=== PATIENT | female | born 1945 | race Caucasian/White ===

== ENCOUNTER → 2017-11-29 | Outpatient (CLI) | payer MEDICARE, OTHER ==
[2017-11-29 11:13] LABS: Basophils % (A) 1 %; Eosinophils # (A) 0.2 k/uL (0-0.7); Eosinophils % (A) 3 %; HCT 43.5 % (34.0-46.0); HGB 13.4 gm/dL (11.4-16.0); Lymphocytes # (A) 1.6 k/uL (1.0-4.8); Lymphocytes % (A) 32 %; MCH 30.6 pg (25.0-35.0); MCHC 30.9 g/dL (31.0-37.0); Mean Platelet Volume 7.4; Monocytes # (A) 0.2 k/uL (0-1.0); Monocytes % (A) 5 %; Neutrophils # (A) 2.9 k/uL (1.3-7.7); Neutrophils % (A) 58 %; Platelet Count 286 k/uL (150-450); RBC 4.39 m/uL (3.80-5.40); RDW 13.6 % (11.5-15.5); WBC 4.9 k/uL (3.8-10.6)
[2017-11-29 11:26] LABS: Albumin 4.1 g/dL (3.5-5.0); Calcium 9.5 mg/dL (8.4-10.2); Magnesium 2.1 mg/dL (1.6-2.3); Potassium 4.7 mmol/L (3.5-5.1); Total Bilirubin 0.5 mg/dL (0.2-1.3); Total Protein 7.1 g/dL (6.3-8.2)
[2017-11-29 11:39] LABS: T4, Free (Free Thyroxine) 0.94 ng/dL (0.78-2.19)
== END | disposition home or self-care (01) ==
LOC: LABWHC1 10:07
PROVIDERS: ATTEND Nurse Practitioner
DX: E78.00 Pure hypercholesterolemia, unspecified (principal); E03.9 Hypothyroidism, unspecified; E55.9 Vitamin D deficiency, unspecified; I10 Essential (primary) hypertension
CPT/HCPCS: 36415; 80053; 80061; 82306; 83735; 84100; 84439; 84443; 85025

== ENCOUNTER → 2018-02-15 | Outpatient (CLI) | payer MEDICARE, OTHER ==
[2018-02-15 16:25] LABS: T4, Free (Free Thyroxine) 1.7 ng/dL (0.80-1.80)
== END ==
LOC: LABWHC1 10:12
PROVIDERS: ATTEND Internal Medicine Pulmonary Disease
DX: E03.9 Hypothyroidism, unspecified (principal)
CPT/HCPCS: 36415; 84439; 84443

== ENCOUNTER → 2018-06-07 | Outpatient (CLI) | payer MEDICARE, OTHER ==
[2018-06-07 18:36] LABS: T4, Free (Free Thyroxine) 1.9 ng/dL (0.80-1.80)
== END ==
LOC: LABWHC1 14:06
PROVIDERS: ATTEND Nurse Practitioner
DX: E03.9 Hypothyroidism, unspecified (principal)
CPT/HCPCS: 36415; 84439; 84443

== ENCOUNTER → 2018-09-24 | Outpatient (CLI) | payer MEDICARE, OTHER ==
--- NOTE | 2018-09-24 15:13 | CT ---
EXAMINATION TYPE: CT abdomen pelvis w con DATE OF EXAM: 09/24/2018 COMPARISON: None HISTORY: abdominal pain CT DLP: 550.2 mGycm Automated exposure control for dose reduction was used. TECHNIQUE: Helical acquisition of images from the lung bases through the pelvis have been completed. CONTRAST: Performed with Oral Contrast and with IV Contrast, patient injected with 100 mL of Isovue 300. FINDINGS: There are intracardiac leads present. LUNG BASES: Some minimal strand-like densities at the lung bases are noted likely reflecting scarring . Small subpleural bulla at the left lung base posteriorly AORTA: No significant abnormality is appreciated. LIVER/GB: There are low dense foci within the right lobe of the liver, the larger measures approximat adalberto 2 cm, findings likely represent cysts. There is mild prominence of intrahepatic biliary ducts lik adalberto due to postcholecystectomy change.. PANCREAS: The head of the pancreas shows some high attenuation which may be related to local duodenal diverticulum, there is suggestion of an air-fluid level at the level of the distal pancreatic duct. SPLEEN: No significant abnormality is seen. ADRENALS: No significant abnormality is seen. KIDNEYS: Left kidney shows marked irregularity, probable multiple areas of scarring, loss of cortex. Right kidney is unremarkable. REPRODUCTIVE ORGANS: Uterus is not seen. Suspect there may be a cystic right ovarian lesion in the ri ght hemipelvis measuring 2.3 cm. BOWEL: There is some areas of colonic wall thickening especially towards the splenic flexure, divert icular changes present within the sigmoid colon. FREE AIR: No Free Air visible. ASCITES: None visible. PELVIC ADENOPATHY: None visualized. RETROPERITONEAL ADENOPATHY: No Retroperitoneal Adenopathy visible. URINARY BLADDER: No significant abnormality is seen. OSSEOUS STRUCTURES: Degenerative disc changes in the visualized spine.. IMPRESSION: DIVERTICULOSIS, DIFFICULT TO EXCLUDE MUCOSAL ABNORMALITY, COLITIS. POSTOP CHANGES. RIGHT OVARIAN CYST IC LESION IS INDETERMINATE. PROBABLE DUODENAL DIVERTICULUM DESCRIBED. Additional findings above.
== END | disposition home or self-care (01) ==
LOC: RADCTMAIN 12:31
DX: K57.90 Diverticulosis of intestine, part unspecified, without perforation or abscess without bleeding (principal); K52.9 Noninfective gastroenteritis and colitis, unspecified; K76.89 Other specified diseases of liver; Z98.890 Other specified postprocedural states; R10.9 Unspecified abdominal pain
CPT/HCPCS: 36415; 74177; 82565; 84520

== ENCOUNTER → 2020-07-28 | Outpatient (CLI) | payer MEDICARE, OTHER ==
[2020-07-29 16:06] LABS: T4, Free (Free Thyroxine) 0.7 ng/dL (0.80-1.80)
== END | disposition home or self-care (01) ==
LOC: LABWHC1 14:15
PROVIDERS: ATTEND Nurse Practitioner
DX: E03.9 Hypothyroidism, unspecified (principal)
CPT/HCPCS: 36415; 84439; 84443

== ENCOUNTER 2022-09-04 14:52 | Emergency (ER) | payer MEDICARE, OTHER ==
[2022-09-04 15:37] LABS: Basophils % (A) 0 %; Eosinophils # (A) 0.1 k/uL (0-0.7); Eosinophils % (A) 2 %; HCT 41.9 % (34.0-46.0); HGB 13.6 gm/dL (11.4-16.0); Lymphocytes # (A) 1.7 k/uL (1.0-4.8); Lymphocytes % (A) 28 %; MCH 31.2 pg (25.0-35.0); MCHC 32.6 g/dL (31.0-37.0); MCV 95.9 fL (80.0-100.0); Mean Platelet Volume 8.8; Monocytes # (A) 0.4 k/uL (0-1.0); Monocytes % (A) 6 %; Neutrophils # (A) 3.8 k/uL (1.3-7.7); Neutrophils % (A) 63 %; Platelet Count 224 k/uL (150-450); RBC 4.36 m/uL (3.80-5.40); RDW 12.6 % (11.5-15.5)
[2022-09-04 15:47] LABS: ALT 17 U/L (4-34); AST 29 U/L (14-36); African American GFR (CKD) 77 (>60 ml/min/1.73 sqM); Albumin 4.2 g/dL (3.5-5.0); Alkaline Phosphatase 65 U/L (38-126); Anion Gap 12 mmol/L; Blood Urea Nitrogen 24 mg/dL (7-17); Calcium 9.3 mg/dL (8.4-10.2); Carbon Dioxide 22 mmol/L (22-30); Chloride 101 mmol/L (98-107); Glucose 87 mg/dL (74-99); Magnesium 1.9 mg/dL (1.6-2.3); Non-African American GFR(CKD) 67 (>60 ml/min/1.73 sqM); Potassium 4.1 mmol/L (3.5-5.1); Sodium 135 mmol/L (137-145); Total Bilirubin 0.5 mg/dL (0.2-1.3)
--- NOTE | 2022-09-04 17:54 | ED ---
Dizziness HPI - General Source: patient Mode of arrival: ambulatory Limitations: no limitations <AlfredoCasper nicholas - Last Filed: 09/04/22 17:57> <Drew Foley - Last Filed: 09/05/22 05:51> - General Chief Complaint: Syncope Stated Complaint: Fall/Syncope - History of Present Illness Initial Comments: 77 year old Female presents to the ED with chief complaint of syncope. Patient states she was standing in her yard when all of a sudden felt lightheaded and fell to the ground. Patient states she fell to her left side and now notes left hip pain, left knee pain, left ankle pain. (Casper Grullon) Patient is a 77-year-old female with known history of orthostatic hypotension who presents emergency Department complaining of an episode of orthostatic hypotension. Patient was outside for camper when she was leaned over working on the outside of the camper and picked up her head too fast when she experienced an episode of her typical orthostatic hypotension. She states she did not hit her head. States she may have lost consciousness for one second but when her left knee and ankle hit the ground is when she awoke. Denies any injury to the head. Is not on blood thinners. Currently is feeling well except for left knee pain, left ankle pain, left hip pain. His no other acute complaints at this time. Does not believe she is dehydrated but has noticed that over the last 2 weeks with increased warm whether there is a possibility. Patient originally seen as a quick note. I evaluated patient when she was placed in room 19. At 2145 (Drew Foley) - Related Data Home Medications Medication Instructions Recorded Confirmed ALPRAZolam [Xanax] 0.25 mg PO HS PRN 01/13/15 01/18/15 Cranberry Conc/C/Bacill Coag 1 tab PO DAILY 01/13/15 01/18/15 [Cranberry Tablet] Docusate [Colace] 100 mg PO DAILY 01/13/15 01/18/15 Levothyroxine Sodium [Synthroid] 112 mcg PO HS 01/13/15 01/18/15 Pravastatin Sodium [Pravachol] 40 mg PO HS 01/13/15 01/18/15 polyethylene glycoL 3350 [Miralax] 17 gm PO DAILY 01/13/15 01/18/15 Acetaminophen Tab [Tylenol] 500 mg PO Q6H 01/18/15 01/18/15 Previous Rx's Medication Instructions Recorded Aspirin 325 mg PO BID #60 tab 01/19/15 Docusate [Colace] 100 mg PO DAILY #30 capsule 01/19/15 HYDROcodone/APAP 7.5-325MG [[place] 1 - 2 each PO Q6HR PRN #40 tab 01/19/15 7.5-325] traMADol HCl [Ultram] 50 mg PO Q6H PRN #40 tab 01/19/15 hydrOXYzine pamoate [Vistaril] 25 mg PO Q6HR #40 capsule 01/20/15 Allergies Allergy/AdvReac Type Severity Reaction Status Date / Time nickel Allergy Itching, Verified 09/04/22 14:58 red skin Review of Systems ROS Other: All systems not noted in ROS Statement are negative. <Casper Grullon - Last Filed: 09/04/22 17:57> ROS Other: All systems not noted in ROS Statement are negative. <Drew Foley - Last Filed: 09/05/22 05:51> ROS Statement: Those systems with pertinent positive or pertinent negative responses have been documented in the HPI. Review of Systems: CONST: Denies fever EYES: Denies blurry vision ENT: Denies nasal congestion C/V: Denies Chest pain RESP: Denies shortness of breath GI: Denies abdominal pain : Denies dysuria SKIN: Denies rash. MSK: Endorses joint pain NEURO: Denies headache (Drew Foley) Past Medical History Past Medical History: Hyperlipidemia, Osteoarthritis (OA), Syncope, Thyroid Disorder Additional Past Medical History / Comment(s): 01/18/15 Pt admitted to floor s/p total L knee arthroplasty. Other hx: syncopy, SSS -2nd degree heart block-has pacemaker, intermittent benign familial head tremors, pas hx. pancreatitis, chronic back pain, DDD, hypothyroidism, orthostatic hypotension, diverticulosis, possible celiac disease-pt eats gluten free, last known EF 55-60% in 2013 with mild tricuspid regurg. History of Any Multi-Drug Resistant Organisms: None Reported Past Surgical History: Breast Surgery, Cholecystectomy, Joint Replacement, Pacemaker, Tonsillectomy Additional Past Surgical History / Comment(s): 01/18/15 total L knee arthroplasty. Other SX HX: dual chamber pacer 01/26/13 breast implants, right knee replaced, oophorectomy Past Anesthesia/Blood Transfusion Reactions: Postoperative Nausea & Vomiting (PONV) Additional Past Anesthesia/Blood Transfusion Reaction / Comment(s): Pt has never recieved blood. Type of Cardiac Device: Permanent Pacemaker Device Placement Date:: 01/26/13 Past Psychological History: Anxiety Smoking Status: Never smoker Past Alcohol Use History: Occasional Past Drug Use History: None Reported - Past Family History Mother Sister(s) Family Medical History: Cancer Mother Family Medical History: Cancer Additional Family Medical History / Comment(s): Mother from chemo used to tx breast cancer at age 69yrs. Father Additional Family Medical History / Comment(s): Father was healthy until he of a brain aneurysm at age 38 yrs. <Casper Grullon - Last Filed: 09/04/22 17:57> General Exam Limitations: no limitations General appearance: alert, in no apparent distress Respiratory exam: Present: normal lung sounds bilaterally Cardiovascular Exam: Present: regular rate, normal rhythm Neurological exam: Present: alert, oriented X3 <Casper Grullon - Last Filed: 09/04/22 17:57> <Drew Foley - Last Filed: 09/05/22 05:51> - General Exam Comments Initial Comments: General: Appears in no acute distress. HEAD: Normal with no signs of head trauma. EYES: PERRLA, EOMI, conjunctiva normal, no discharge. Pupils are 2 mm and equal bilaterally. ENT: Hearing grossly intact, normal oropharynx. RESPIRATORY: Clear breath sounds bilaterally. No wheezes, rales, or rhonchi. C/V: Regular rate and rhythm. S1 and S2 auscultated, no edema, peripheral pulses 2+ and intact throughout ABD: Abd is soft, nontender, nondistended EXT: Normal range of motion. No obvious deformity. Tenderness to palpation of the left knee. Mild tenderness over the lateral malleolus of the left ankle. M ild tenderness over the left posterior hip. No obvious deformities. Normal range of motion. Neurovascular intact throughout. SKIN: No rashes or lesions observed on exposed skin. NEURO: Alert and oriented x 4. Cranial nerves II-XII intact. No focal sensory or strength deficits. NIH is 0. GCS of 15. (Drew Foley) Course Vital Signs 09/04/22 09/04/22 09/04/22 14:55 18:39 21:40 Temperature 98 F 98.4 F Pulse Rate 91 94 88 Pulse Rate [ Pulse Oximetery ] Respiratory 20 16 18 Rate Blood Pressure 114/59 122/83 141/86 Blood Pressure [Right Arm Sitting] Blood Pressure [Right Arm Standing] Blood Pressure [Right Arm Supine] O2 Sat by Pulse 99 96 95 Oximetry 09/04/22 09/04/22 22:51 22:53 Temperature Pulse Rate 100 Pulse Rate [ 100 Pulse Oximetery ] Respiratory 18 Rate Blood Pressure 126/81 Blood Pressure 149/89 [Right Arm Sitting] Blood Pressure 152/96 [Right Arm Standing] Blood Pressure 126/81 [Right Arm Supine] O2 Sat by Pulse 97 Oximetry Medical Decision Making - Lab Data Result diagrams: 09/04/22 15:21 09/04/22 15:21 <Casper Grullon - Last Filed: 09/04/22 17:57> - Lab Data Result diagrams: 09/04/22 15:21 09/04/22 15:21 - EKG Data -: EKG Interpreted by Co <Drew Foley - Last Filed: 09/05/22 05:51> - Medical Decision Making Was pt. sent in by a medical professional or institution (, PA, MEDICAL RECORDS MANAGER, urgent care, hospital, or halfway...) When possible be specific @ -No Did you speak to anyone other than the patient for history (EMS, parent, family, police, friend...)? What history was obtained from this source @ -No Did you review nursing and triage notes (agree or disagree)? Why? @ -I reviewed and agree with nursing and triage notes Were old charts reviewed (outside hosp., previous admission, EMS record, old EKG, old radiological studies, urgent care reports/EKG's, halfway records)? Report findings @ -No old charts were reviewed Differential Diagnosis (chest pain, altered mental status, abdominal pain women, abdominal pain men, vaginal bleeding, weakness, fever, dyspnea, syncope, headache, dizziness, GI bleed, back pain, seizure, CVA, palpatations, mental health, musculoskeletal)? @ -Differential Syncope: Valvular disease, hypertrophic cardiomyopathy, pulmonary embolism, tamponade, tachycardia, bradycardia, SC, hypovolemia, hemorrhage, dissection, anemia, intracranial hemorrhage, seizure, hypoglycemia, carbon monoxide poisoning, this is not meant to be an all-inclusive list. EKG interpreted by me (3pts min.). @ -As above X-rays interpreted by me (1pt min.). @ -Chest x-ray reveals no obvious acute cardio, process. No acute injury. Pelvis x-ray reveals no obvious injury. Left knee and left ankle x-rays reveal no obvious injuries. CT interpreted by me (1pt min.). @ -None done U/S interpreted by me (1pt. min.). @ -None done What testing was considered but not performed or refused? (CT, X-rays, U/S, labs)? Why? @ -None What meds were considered but not given or refused? Why? @ -None Did you discuss the management of the patient with other professionals (professionals i.e. , PA, MEDICAL RECORDS MANAGER, lab, RT, psych nurse, pediatric social worker, stave mill hand, teacher, emergency communications officer, field nurse case manager)? Give summary @ -No Was smoking cessation discussed for >3mins.? @ -No Was critical care preformed (if so, how long)? @ -No Were there social determinants of health that impacted care today? How? (Homelessness, low income, unemployed, alcoholism, drug addiction, transp ortation, low edu. Level, literacy, decrease access to med. care, [facility], rehab)? @ -No Was there de-escalation of care discussed even if they declined (Discuss DNR or withdrawal of care, Hospice)? DNR status @ -No What co-morbidities impacted this encounter? (DM, HTN, Smoking, COPD, CAD, Cancer, CVA, ARF, Chemo, Hep., AIDS, mental health diagnosis, sleep apnea, morbid obesity)? @ -Orthostatic hypotension Was patient admitted / discharged? Hospital course, mention meds given and rout e, prescriptions, significant lab abnormalities, going to OR and other pertinent info. @ -Based on the patient's presentation and physical exam, do believe she suffered an episode of orthostatic hypotension. EKG was within normal limits. Imaging which was already obtained show no obvious injuries. Patient's labs are also within acceptable limits. I did discuss with her and would like to provide her with a liter of fluids, and IV Toradol for analgesia, as well as evaluate for orthostatic vital signs. She was in agreement this plan. She is overall well-appearing. Normal neuro exam. No head trauma. Vital signs within acceptable limits. Patient has already been here multiple hours and she was in agreement this plan. Patient's imaging is unremarkable. No acute injuries or fractures. Following Toradol, fluids, orthostatic vital signs within acceptable limits. I discussed with the patient and she would like to go home. She'll be discharged home at this time. She was in agreement with this plan. = I instructed the patient to follow up with their PCP in the next 1-3 days. . I explained that the patient should return to the emergency department if they experience any worsening symptoms. Strict return precautions were discussed with the patient. The patient expressed understanding of these instructions. I answered all questions that the patient had. The patient was discharged home in good condition with their prescriptions and follow up information. Undiagnosed new problem with uncertain prognosis? @ -No Drug Therapy requiring intensive monitoring for toxicity (Heparin, Nitro, Insulin, Cardizem)? @ -No Were any procedures done? @ -No Diagnosis/symptom? @ -Orthostatic hypotension, fall, left knee contusion, muscle strains Acute, or Chronic, or Acute on Chronic? @ -Acute Uncomplicated (without systemic symptoms) or Complicated (systemic symptoms)? @ -Complicated Side effects of treatment? @ -No Exacerbation, Progression, or Severe Exacerbation? @ -No Poses a threat to life or bodily function? How? (Chest pain, USA, SC, pneumonia, PE, COPD, DKA, ARF, appy, cholecystitis, CVA, Diverticulitis, Homicidal, Suicidal, threat to staff... and all critical care pts) @ -No (Drew Foley) - Lab Data Lab Results 09/04/22 09/04/22 09/04/22 Range/Units 15:21 15:21 15:21 WBC 6.0 (3.8-10.6) k/uL RBC 4.36 (3.80-5.40) m/uL Hgb 13.6 (11.4-16.0) gm/dL Hct 41.9 (34.0-46.0) % MCV 95.9 (80.0-100.0) fL MCH 31.2 (25.0-35.0) pg MCHC 32.6 (31.0-37.0) g/dL RDW 12.6 (11.5-15.5) % Plt Count 224 (150-450) k/uL MPV 8.8 Neutrophils % 63 % Lymphocytes % 28 % Monocytes % 6 % Eosinophils % 2 % Basophils % 0 % Neutrophils # 3.8 (1.3-7.7) k/uL Lymphocytes # 1.7 (1.0-4.8) k/uL Monocytes # 0.4 (0-1.0) k/uL Eosinophils # 0.1 (0-0.7) k/uL Basophils # 0.0 (0-0.2) k/uL Sodium 135 L (137-145) mmol/L Potassium 4.1 (3.5-5.1) mmol/L Chloride 101 (98-107) mmol/L Carbon Dioxide 22 (22-30) mmol/L Anion Gap 12 mmol/L BUN 24 H (7-17) mg/dL Creatinine 0.84 (0.52-1.04) mg/dL Est GFR (CKD-EPI)AfAm 77 (>60 ml/min/1.73 sqM) Est GFR (CKD-EPI)NonAf 67 (>60 ml/min/1.73 sqM) Glucose 87 (74-99) mg/dL Calcium 9.3 (8.4-10.2) mg/dL Magnesium 1.9 (1.6-2.3) mg/dL Total Bilirubin 0.5 (0.2-1.3) mg/dL AST 29 (14-36) U/L ALT 17 (4-34) U/L Alkaline Phosphatase 65 (38-126) U/L Troponin I <0.012 (0.000-0.034) ng/mL Total Protein 7.0 (6.3-8.2) g/dL Albumin 4.2 (3.5-5.0) g/dL - EKG Data EKG Comments: 12-lead Electrocardiogram Interpretation Note EKG was reviewed and interpreted by myself. 12-lead ECG performed at 1503 is interpreted by me as revealing normal sinus rhythm at a rate of 85 beats per minute. [place] is normal. AR interval is 176 ms, QRS duration 70 ms, QTc is 392 ms.. There were no ST or T wave abnormalities to suggest myocardial ischemia or injury. R wave progression across the precordium was satisfactory. By my interpretation this EKG is non-diagnostic for acute ischemia. (Drew Foley) Disposition <Casper Grullon - Last Filed: 09/04/22 17:57> Is patient prescribed a controlled substance at d/c from ED?: No Time of Disposition: 23:11 <Drew Foley - Last Filed: 09/05/22 05:51> Clinical Impression: Orthostatic hypotension, Fall, Muscle strain, Contusion of knee, left Disposition: HOME SELF-CARE Condition: Good Referrals: None,Stated [REFERRING] - 1-2 days
[2022-09-04 18:39] VITALS: TEMP 98.4
[2022-09-04 21:41] VITALS: RESP 18
--- NOTE | 2022-09-04 21:51 | XR ---
EXAMINATION TYPE: XR chest 2V DATE OF EXAM: 09/04/2022 8:39 PM COMPARISON: Chest x-ray 01/04/2015 TECHNIQUE: XR chest 2V . CLINICAL INDICATION:Female, 77 years old with history of syncope; FINDINGS: Lungs/Pleura: Streaky atelectasis of the lung bases bilaterally. No focal airspace consolidation, pne umothorax or pleural effusion. Pulmonary vascularity: Unremarkable. Heart/mediastinum: Cardiomediastinal silhouette is unremarkable. Two lead cardiac conduction device o verlying the left hemithorax with lead tips projecting over the right ventricle and right atrium. Musculoskeletal: Multiple level degenerative disc disease changes seen throughout the spine. IMPRESSION: Bibasilar atelectasis versus scarring. No focal consolidation.
--- NOTE | 2022-09-04 21:53 | XR ---
EXAMINATION TYPE: XR ankle complete LT DATE OF EXAM: 09/04/2022 8:42 PM INDICATION: Patient age:Female; 77 years old; Reason for study: left ankle pain s/p fall; PHH. COMPARISON: No relevant priors TECHNIQUE: The left ankle is imaged in frontal, lateral and oblique projections. FINDINGS: There is no evidence of acute osseous pathology. The joint spaces are well-preserved without evidenc e of subluxation or dislocation. Kager's fat pad is intact. Soft tissues are within normal limits. No radiopaque foreign bodies are identified. IMPRESSION: 1. No evidence of acute fracture or significant soft tissue swelling.
--- NOTE | 2022-09-04 21:54 | XR ---
EXAMINATION TYPE: XR knee complete LT DATE OF EXAM: 09/04/2022 8:39 PM INDICATION: Patient age:Female; 77 years old; Reason for study: left knee pain s/p fall; PHH. COMPARISON: Left knee radiographs 01/18/2015 TECHNIQUE: The Left knee(s) was examined in 3 projections. Frontal, lateral and oblique. FINDINGS: Postsurgical changes from total left knee arthroplasty. Hardware appears intact. No sizable joint effusion. No evidence for osseous fracture or dislocation. Small loose osseous body is noted w ithin the infrapatellar space. No radiopaque foreign bodies. IMPRESSION: 1. No acute osseous pathology. 2. Left total knee arthroplasty without evidence for acute hardware complication.
[2022-09-04] MEDS ORDERED: KETOROLAC 15 MG/ML 1 ML VIAL IVP STA (21:55)
[2022-09-04] MEDS ORDERED: SODIUM CHLORIDE 0.9% 1,000 ML IV STA (21:55)
--- NOTE | 2022-09-04 21:56 | XR ---
EXAMINATION TYPE: XR pelvis AP view DATE OF EXAM: 09/04/2022 8:39 PM INDICATION: Patient age:Female; 77 years old; Reason for study: L hip pain; PHH. COMPARISON: None. TECHNIQUE: Single frontal view of the pelvis in AP projection. FINDINGS: No evidence of any acute osseous pathology, joint dislocation, or soft tissue swelling. Mul tiple phleboliths are noted. Degenerative changes of the lower lumbar spine. IMPRESSION: No acute osseous pathology.
[2022-09-04 22:53] VITALS: BP 126/81; PULSE 100
== END 2022-09-04 23:38 | disposition home or self-care (01) ==
LOC: EC 14:52
DX: S83.92XA Sprain of unspecified site of left knee, initial encounter (principal); I95.1 Orthostatic hypotension; E78.5 Hyperlipidemia, unspecified; E03.9 Hypothyroidism, unspecified; M19.90 Unspecified osteoarthritis, unspecified site; F41.9 Anxiety disorder, unspecified; Z88.8 Allergy status to other drugs, medicaments and biological substances; Z79.890 Hormone replacement therapy; Z79.899 Other long term (current) drug therapy; W18.30XA Fall on same level, unspecified, initial encounter
CPT/HCPCS: 36415; 80053; 83735; 84484; 85025; 72170; 73562; 73610; 71046; 99284; 96374; 96361; J1885; 93005

== ENCOUNTER → 2023-01-25 | Outpatient (CLI) | payer MEDICARE, OTHER ==
--- NOTE | 2023-01-26 13:51 | MM ---
Reason for Exam: Screening (asymptomatic). Last mammogram was performed 1 year(s) and 10 month(s) ago. Patient History: Menarche at age 12. First Full-Term at age 17. Postmenopausal. Patient used Estrogen and Progesterone for 15 years. 2009, Bilateral Implants. Mother had breast cancer. Sister had breast cancer. Risk Values: Alaina 5 year model risk: 8.1%. NCI Lifetime model risk: 14.1%. Prior Study Comparison: 03/09/2021 Bilateral Screening Mammogram, [facility]. Tissue Density: There are scattered fibroglandular densities. Findings: Analyzed By CAD. Bilateral breast implants. There is no suspicious group of microcalcifications or new suspicious mass. Overall Assessment: Negative, BI-RAD 1 Management: Screening Mammogram of both breasts in [address] [facility] will attempt to contact patient to return for supplemental views and ultrasound if indicated. Patient should continue monthly self-breast exams. A clinical breast exam by your physician is recommended on an annual basis. This exam should not preclude additional follow-up of suspicious palpable abnormalities. Note on Alaina scores and lifetime risk: 1. A Alaina score greater than 3% is considered moderate risk. If this is the case, consider specialist referral to assess eligibility for a risk reducing agent. 2. If overall lifetime risk for the development of breast cancer is 20% or higher, the patient may qualify for future screening with alternating mammogram and breast MRI. Electronically signed and approved by: Tony Hernandez DO
== END | disposition home or self-care (01) ==
LOC: RADMAMWWP 13:34
PROVIDERS: ATTEND Internal Medicine Pulmonary Disease
DX: Z12.31 Encounter for screening mammogram for malignant neoplasm of breast (principal); Z78.0 Asymptomatic menopausal state; Z80.3 Family history of malignant neoplasm of breast; Z98.82 Breast implant status
CPT/HCPCS: 77063; 77067

== ENCOUNTER 2023-07-28 10:06 | Observation (INO) | payer MEDICARE, OTHER ==
--- NOTE | 2023-07-28 10:35 | ED ---
General Adult HPI - General Stated complaint: chest pain Time Seen by Provider: 07/28/23 10:25 Source: patient, RN notes reviewed, old records reviewed - History of Present Illness Initial comments: This is a 78-year-old female who presents to the emergency department the past medical history significant for smoking which she quit 20 years ago and high cholesterol. Patient states yesterday after working outside she started having severe pain across her back and radiated around to the front and last about 2 minutes and after that she felt extremely fatigued and tired. Patient states she woke up this morning and was having chest pain on the left side of her chest radiating to her left armpit and that made her very concerned so she decided to come to the emergency department. Patient denies any diaphoretic episode. Murali albarado denies any radiation to the back today. Patient denied any shortness of breath or difficulty breathing. Patient denies any abdominal pain patient has nausea or vomiting. - Related Data Home Medications Medication Instructions Recorded Confirmed Pravastatin Sodium [Pravachol] 40 mg PO HS 01/13/15 07/28/23 Levothyroxine Sodium [Synthroid] 125 mcg PO HS 09/18/22 07/28/23 Metoprolol Tartrate [Lopressor] 25 mg PO HS 09/18/22 07/28/23 Montelukast [Singulair] 10 mg PO HS 09/18/22 07/28/23 ALPRAZolam [Xanax] 0.25 mg PO TID PRN 07/28/23 07/28/23 Aspirin [[place] Aspirin EC] 81 mg PO HS 07/28/23 07/28/23 Calcium Carbonate/Vitamin D3 1 cap PO HS 07/28/23 07/28/23 [Calcium 600 mg-D3 10 Mcg (400 Iu)] Cranberry Fruit Extract [Cranberry] 500 mg PO HS 07/28/23 07/28/23 Melatonin 10 mg PO HS PRN 07/28/23 07/28/23 Turmeric Root Extract [Turmeric] 500 mg PO HS 07/28/23 07/28/23 Allergies Allergy/AdvReac Type Severity Reaction Status Date / Time gluten Allergy Unknown Verified 07/28/23 11:37 nickel Allergy Itching, Verified 07/28/23 11:37 red skin Review of Systems ROS Statement: Those systems with pertinent positive or pertinent negative responses have been documented in the HPI. ROS Other: All systems not noted in ROS Statement are negative. Past Medical History Past Medical History: Asthma, GERD/Reflux, Hyperlipidemia, Osteoarthritis (OA), Syncope, Thyroid Disorder Additional Past Medical History / Comment(s): Other hx: syncopy, SSS -2nd degree heart block-has pacemaker, intermittent benign familial head tremors, pas hx. pancreatitis, chronic back pain, DDD, hypothyroidism, orthostatic hypotension, diverticulosis, possible celiac disease-pt eats gluten free, last known EF 55- 60% in 2012 with mild tricuspid regurg., passed out recently & was seen in , takes semaglutide for weight loss, not diabetic, see Dr. Lehman H & P History of Any Multi-Drug Resistant Organisms: None Reported Past Surgical History: Breast Surgery, Cholecystectomy, Joint Replacement, Pacemaker, Tonsillectomy, Tubal Ligation Additional Past Surgical History / Comment(s): leandro knee replacements, Other SX HX: dual chamber pacer 01/26/13, breast implants, oophorectomy Past Anesthesia/Blood Transfusion Reactions: Postoperative Nausea & Vomiting (PONV) Additional Past Anesthesia/Blood Transfusion Reaction / Comment(s): Pt has never recieved blood. Type of Cardiac Device: Permanent Pacemaker Device Placement Date:: 01/26/13 Smoking Status: Former smoker - Past Family History Mother Sister(s) Family Medical History: Cancer Mother Family Medical History: Cancer Additional Family Medical History / Comment(s): Mother from chemo used to tx breast cancer at age 69yrs. Father Additional Family Medical History / Comment(s): Father was healthy until he of a brain aneurysm at age 38 yrs. General Exam - General Exam Comments Initial Comments: GENERAL: Patient is well-developed and well-nourished. Patient is nontoxic and well- hydrated and is in mild distress. ENT: Neck is soft and supple. No significant lymphadenopathy is noted. Oropharynx is clear. Moist mucous membranes. Neck has full range of motion without eliciting any pain. EYES: The sclera were anicteric and conjunctiva were pink and moist. Extraocular movements were intact and pupils were equal round and reactive to light. Eyelids were unremarkable. PULMONARY: Unlabored respirations. Good breath sounds bilaterally. No audible rales rhonchi or wheezing was noted. CARDIOVASCULAR: There is a regular rate and rhythm without any murmurs gallops or rubs. ABDOMEN: Soft and nontender with normal bowel sounds. SKIN: Skin is clear with no lesions or rashes and otherwise unremarkable. NEUROLOGIC: Patient is alert and oriented x3. Cranial nerves II through XII are grossly intact. Motor and sensory are also intact. Normal speech, volume and content. Symmetrical smile. MUSCULOSKELETAL: Normal extremities with adequate strength and full range of motion. LYMPHATICS: No significant lymphadenopathy is noted PSYCHIATRIC: Patient is mildly anxious Course Vital Signs 07/28/23 10:27 Temperature 97.0 F L Pulse Rate 88 Respiratory 16 Rate Blood Pressure 141/87 O2 Sat by Pulse 97 Oximetry Medical Decision Making - Medical Decision Making EKG is interpreted by myself. EKG shows a sinus rhythm at 78 bpm parable 170 QRS 99 QT interval 356 QTc is 389. Patient's EKG shows no ST segment elevation or depression. Was pt. sent in by a medical professional or institution (, PA, MASTER OCEAN, urgent care, hospital, or [place] [facility] facility...) When possible be specific @ -No Did you speak to anyone other than the patient for history (EMS, parent, family, police, friend...)? What history was obtained from this source @ -No Did you review nursing and triage notes (agree or disagree)? Why? @ -I reviewed and agree with nursing and triage notes Were old charts reviewed (outside hosp., previous admission, EMS record, old EKG, old radiological studies, urgent care reports/EKG's, [place] [facility] facility records)? Report findings @ -No old charts were reviewed Differential Diagnosis (chest pain, altered mental status, abdominal pain women, abdominal pain men, vaginal bleeding, weakness, fever, dyspnea, syncope, headache, dizziness, GI bleed, back pain, seizure, CVA, palpatations, mental health, musculoskeletal)? @ -Differential Chest Pain: Stable Angina, Unstable Angina, STEMI, NSTEMI Aortic Dissection, Pneumothorax, Musculoskeletal, Esophageal Spasm GERD, Cholecystitis, Pancreatitis, Zoster, this is not meant to be an all-inclusive list. EKG interpreted by me (3pts min.). @ -As above X-rays interpreted by me (1pt min.). @ -Chest x-ray shows no acute abnormality CT interpreted by me (1pt min.). @ -CT of the chest showed no PE no aortic dissection U/S interpreted by me (1pt. min.). @ -None done What testing was considered but not performed or refused? (CT, X-rays, U/S, labs)? Why? @ -None What meds were considered but not given or refused? Why? @ -None Did you discuss the management of the patient with other professionals (professionals i.e. , PA, MASTER OCEAN, lab, RT, psych nurse, vp digital marketing social media and crm, philosophy instructor, teacher, house officer, window caser)? Give summary @ -I spoke with Dr. Louis and he agreed to admit the patient admit the patient repeating orders Was smoking cessation discussed for >3mins.? @ -No Was critical care preformed (if so, how long)? @ -No Were there social determinants of health that impacted care today? How? (Homelessness, low income, unemployed, alcoholism, drug addiction, transportation, low edu. Level, literacy, decrease access to med. care, half-way, rehab)? @ -No Was there de-escalation of care discussed even if they declined (Discuss DNR or withdrawal of care, Hospice)? DNR status @ -No What co-morbidities impacted this encounter? (DM, HTN, Smoking, COPD, CAD, Cancer, CVA, ARF, Chemo, Hep., AIDS, mental health diagnosis, sleep apnea, morbid obesity)? @ -None Was patient admitted / discharged? Hospital course, mention meds given and route, prescriptions, significant lab abnormalities, going to OR and other pe rtinent info. @ -Patient was given aspirin and Nitropaste in the emergency department. Patient continued to have chest pain throughout the ED stay but it was improved. Patient will be admitted to Dr. Louis and cardiology be consulted Undiagnosed new problem with uncertain prognosis? @ -No Drug Therapy requiring intensive monitoring for toxicity (Heparin, Nitro, Insulin, Cardizem)? @ -No Were any procedures done? @ -No Diagnosis/symptom? @ -Chest pain Acute, or Chronic, or Acute on Chronic? @ -Acute Uncomplicated (without systemic symptoms) or Complicated (systemic symptoms)? @ -Complicated Side effects of treatment? @ -No Exacerbation, Progression, or Severe Exacerbation? @ -No Poses a threat to life or bodily function? How? (Chest pain, [place], [place], pneumonia, PE, COPD, DKA, ARF, appy, cholecystitis, CVA, Diverticulitis, Homicidal, Suicidal, threat to staff... and all critical care pts) @ -Yes this could lead to an [place] and endorgan dysfunction - Lab Data Result diagrams: 07/28/23 10:55 07/28/23 10:55 Lab Results 07/28/23 07/28/23 07/28/23 Range/Units 10:55 10:55 10:55 WBC 5.6 (3.8-10.6) k/uL RBC 4.34 (3.80-5.40) m/uL Hgb 13.2 (11.4-16.0) gm/dL Hct 41.4 (34.0-46.0) % MCV 95.3 (80.0-100.0) fL MCH 30.5 (25.0-35.0) pg MCHC 32.0 (31.0-37.0) g/dL RDW 12.7 (11.5-15.5) % Plt Count 224 (150-450) k/uL MPV 7.9 Neutrophils % 65 % Lymphocytes % 24 % Monocytes % 6 % Eosinophils % 3 % Basophils % 1 % Neutrophils # 3.6 (1.3-7.7) k/uL Lymphocytes # 1.3 (1.0-4.8) k/uL Monocytes # 0.3 (0-1.0) k/uL Eosinophils # 0.2 (0-0.7) k/uL Basophils # 0.0 (0-0.2) k/uL PT 10.9 (10.0-12.5) sec INR 1.0 (<1.2) APTT 26.9 (22.0-30.0) sec D-Dimer 1.11 H (<0.60) mg/L FEU Sodium 137 (137-145) mmol/L Potassium 4.2 (3.5-5.1) mmol/L Chloride 108 H (98-107) mmol/L Carbon Dioxide 26 (22-30) mmol/L Anion Gap 3 mmol/L BUN 27 H (7-17) mg/dL Creatinine 0.89 (0.52-1.04) mg/dL Est GFR (CKD-EPI)AfAm 71 (>60 ml/min/1.73 sqM) Est GFR (CKD-EPI)NonAf 62 (>60 ml/min/1.73 sqM) Glucose 85 (74-99) mg/dL Calcium 9.0 (8.4-10.2) mg/dL Magnesium 1.9 (1.6-2.3) mg/dL Total Bilirubin 0.8 (0.2-1.3) mg/dL AST 26 (14-36) U/L ALT 14 (4-34) U/L Alkaline Phosphatase 67 (38-126) U/L Troponin I (0.000-0.034) ng/mL Total Protein 6.6 (6.3-8.2) g/dL Albumin 4.0 (3.5-5.0) g/dL 07/28/23 Range/Units 10:55 WBC (3.8-10.6) k/uL RBC (3.80-5.40) m/uL Hgb (11.4-16.0) gm/dL Hct (34.0-46.0) % MCV (80.0-100.0) fL MCH (25.0-35.0) pg MCHC (31.0-37.0) g/dL RDW (11.5-15.5) % Plt Count (150-450) k/uL MPV Neutrophils % % Lymphocytes % % Monocytes % % Eosinophils % % Basophils % % Neutrophils # (1.3-7.7) k/uL Lymphocytes # (1.0-4.8) k/uL Monocytes # (0-1.0) k/uL Eosinophils # (0-0.7) k/uL Basophils # (0-0.2) k/uL PT (10.0-12.5) sec INR (<1.2) APTT (22.0-30.0) sec D-Dimer (<0.60) mg/L FEU Sodium (137-145) mmol/L Potassium (3.5-5.1) mmol/L Chloride (98-107) mmol/L Carbon Dioxide (22-30) mmol/L Anion Gap mmol/L BUN (7-17) mg/dL Creatinine (0.52-1.04) mg/dL Est GFR (CKD-EPI)AfAm (>60 ml/min/1.73 sqM) Est GFR (CKD-EPI)NonAf (>60 ml/min/1.73 sqM) Glucose (74-99) mg/dL Calcium (8.4-10.2) mg/dL Magnesium (1.6-2.3) mg/dL Total Bilirubin (0.2-1.3) mg/dL AST (14-36) U/L ALT (4-34) U/L Alkaline Phosphatase (38-126) U/L Troponin I <0.012 (0.000-0.034) ng/mL Total Protein (6.3-8.2) g/dL Albumin (3.5-5.0) g/dL Disposition Clinical Impression: Chest pain Disposition: ADMITTED IP TO THIS HOSP Referrals: Nonstaff,Physician [Primary Care Provider] - 1-2 days Time of Disposition: 13:25
[2023-07-28] MEDS: ASPIRIN 81 MG PO STA (10:57)
[2023-07-28] MEDS: NITROGLYCERIN OINT 1 INCH/GM PACKET TOPICAL STA (10:58)
[2023-07-28] MEDS: LORazepam 2 MG/ML INJ IV STA (10:58)
[2023-07-28 11:11] LABS: Basophils % (A) 1 %; Eosinophils # (A) 0.2 k/uL (0-0.7); Eosinophils % (A) 3 %; HCT 41.4 % (34.0-46.0); HGB 13.2 gm/dL (11.4-16.0); Lymphocytes # (A) 1.3 k/uL (1.0-4.8); Lymphocytes % (A) 24 %; MCH 30.5 pg (25.0-35.0); MCV 95.3 fL (80.0-100.0); Mean Platelet Volume 7.9; Monocytes # (A) 0.3 k/uL (0-1.0); Monocytes % (A) 6 %; Neutrophils # (A) 3.6 k/uL (1.3-7.7); Neutrophils % (A) 65 %; Platelet Count 224 k/uL (150-450); RBC 4.34 m/uL (3.80-5.40); RDW 12.7 % (11.5-15.5); WBC 5.6 k/uL (3.8-10.6)
[2023-07-28 11:21] LABS: ALT 14 U/L (4-34); AST 26 U/L (14-36); African American GFR (CKD) 71 (>60 ml/min/1.73 sqM); Alkaline Phosphatase 67 U/L (38-126); Anion Gap 3 mmol/L; Blood Urea Nitrogen 27 mg/dL (7-17); Carbon Dioxide 26 mmol/L (22-30); Chloride 108 mmol/L (98-107); Glucose 85 mg/dL (74-99); Magnesium 1.9 mg/dL (1.6-2.3); Non-African American GFR(CKD) 62 (>60 ml/min/1.73 sqM); Potassium 4.2 mmol/L (3.5-5.1); Sodium 137 mmol/L (137-145); Total Bilirubin 0.8 mg/dL (0.2-1.3); Total Protein 6.6 g/dL (6.3-8.2)
--- NOTE | 2023-07-28 11:22 | XR ---
EXAMINATION TYPE: XR chest 2V DATE OF EXAM: 07/28/2023 COMPARISON: 09/04/2022 HISTORY: Chest pain TECHNIQUE: Frontal and lateral views of the chest are obtained. FINDINGS: There is a 2-lead cardiac pacemaker unchanged in position. There is mild hyperinflation and flattening the diaphragm and stable mild interstitial density in the right lung base. There is no airspace consolidation. There is no pleural effusion or pneumothorax. The heart and pulmonary vasculature are normal. IMPRESSION: 1. No acute cardiopulmonary disease. 2. Findings suggestive of mild COPD and chronic lung changes.
[2023-07-28 11:26] LABS: Partial Thromboplastin Time 26.9 sec (22.0-30.0); Prothrombin Time 10.9 sec (10.0-12.5)
--- NOTE | 2023-07-28 12:20 | CT ---
EXAMINATION TYPE: CT chest angio for PE DATE OF EXAM: 07/28/2023 COMPARISON: None HISTORY: Chest and back pain, elevated d-dimer CT DLP: 214.3 mGycm Automated exposure control for dose reduction was used. CONTRAST: CT Chest for pulmonary embolism performed with with IV Contrast, patient injected with 100 mL of Isov ue 370. FINDINGS: LUNGS: The lungs are grossly clear, there is no concerning parenchymal mass or nodule identified. T here is no pleural effusion or pneumothorax seen. The tracheobronchial tree is patent. MEDIASTINUM: There is satisfactory enhancement of the pulmonary artery and its branches, there is no CT evidence for pulmonary embolism. There are no greater than 1 cm hilar or mediastinal lymph nodes. No pericardial effusion is seen. Bilateral breast implants IMPRESSION: 1. evidence of pulmonary medicine. 2. No acute cardiopulmonary disease 3. Moderate emphysematous changes and mild bibasilar atelectasis and bronchiectasis. Follow-up recommendations for incidental pulmonary nodules are per [employer] or [employer].
[2023-07-28] MEDS ORDERED: NITROGLYCERIN SL TABS 0.4 MG TAB SUBLINGUAL PRN (13:27)
[2023-07-28] MEDS ORDERED: ALPRAZolam 0.25 MG TAB PO PRN (16:32)
--- NOTE | 2023-07-28 16:41 | P.HPIM ---
History of Present Illness Patient is a 78-year-old female came in with complaints of severe sharp nonexertional chest pain that started yesterday radiating from the back to the front. Patient does not have her gallbladder. Patient denies any other radiation of the chest pain to the neck or to the left shoulder denies any diaphoresis lightheadedness shortness of breath associate with that. Patient chest pain is nonexertional. Patient pain resolved in 3 minutes followed by couple more episodes today morning although not as severe. EKG did not show any acute ST-T wave changes the some changes consistent with right bundle branch block 2 sets of troponins are negative. Patient had mild elevated D-dimer because of his CT angio of the chest was obtained which did not show any pulmonary embolism, aortic dissection or pneumonia. Patient has any family history of coronary artery disease or premature coronary disease REVIEW OF SYSTEMS: CONSTITUTIONAL: No fever, no malaise, no fatigue. HEENT: No recent visual problems or hearing problems. Denied any sore throat. CARDIOVASCULAR: No orthopnea, PND, no palpitations, no syncope. PULMONARY: No shortness of breath, no cough, no hemoptysis. GASTROINTESTINAL: No diarrhea, no nausea, no vomiting, no abdominal pain. NEUROLOGICAL: No headaches, no weakness, no numbness. HEMATOLOGICAL: Denies any bleeding or petechiae. GENITOURINARY: Denies any burning micturition, frequency, or urgency. MUSCULOSKELETAL/RHEUMATOLOGICAL: Denies any joint pain, swelling, or any muscle pain. ENDOCRINE: Denies any polyuria or polydipsia. The rest of the 14-point review of systems is negative. PHYSICAL EXAMINATION: GENERAL: The patient is alert and oriented x3, not in any acute distress. Well developed, well nourished. HEENT: Pupils are round and equally reacting to light. EOMI. No scleral icterus. No conjunctival pallor. Normocephalic, atraumatic. No pharyngeal erythema. No thyromegaly. CARDIOVASCULAR: S1 and S2 present. No murmurs, rubs, or gallops. PULMONARY: Chest is clear to auscultation, no wheezing or crackles. ABDOMEN: Soft, nontender, nondistended, normoactive bowel sounds. No palpable organomegaly. MUSCULOSKELETAL: No joint swelling or deformity. EXTREMITIES: No cyanosis, clubbing, or pedal edema. NEUROLOGICAL: Gross neurological examination did not reveal any focal deficits. SKIN: No rashes. Assessment and plan -Chest pain will rule out acute coronary syndromes patient will be monitored overnight cardiology will evaluate the patient. Patient chest pain although is mostly atypical may need an outpatient stress test. -Rule out pulmonary embolism -Asthma without any acute exacerbation -Hypothyroidism -Hyperlipidemia -Anxiety disorder For above-mentioned chronic medical problems patient will be resumed on appropriate home medications DVT prophylaxis: Early ambulation Past Medical History Past Medical History: Asthma, GERD/Reflux, Hyperlipidemia, Osteoarthritis (OA), Syncope, Thyroid Disorder Additional Past Medical History / Comment(s): Other hx: syncopy, SSS -2nd degree heart block-has pacemaker, intermittent benign familial head tremors, pas hx. pancreatitis, chronic back pain, DDD, hypothyroidism, orthostatic hypotension, diverticulosis, possible celiac disease-pt eats gluten free, last known EF 55- 60% in 2012 with mild tricuspid regurg., passed out recently & was seen in , takes semaglutide for weight loss, not diabetic, see Dr. Lehman H & P History of Any Multi-Drug Resistant Organisms: None Reported Past Surgical History: Breast Surgery, Cholecystectomy, Joint Replacement, Pacemaker, Tonsillectomy, Tubal Ligation Additional Past Surgical History / Comment(s): leandro knee replacements, Other SX HX: dual chamber pacer 01/26/13, breast implants, oophorectomy Past Anesthesia/Blood Transfusion Reactions: Postoperative Nausea & Vomiting (PONV) Additional Past Anesthesia/Blood Transfusion Reaction / Comment(s): Pt has never recieved blood. Type of Cardiac Device: Permanent Pacemaker Device Placement Date:: 01/26/13 Smoking Status: Former smoker - Past Family History Mother Sister(s) Family Medical History: Cancer Mother Family Medical History: Cancer Additional Family Medical History / Comment(s): Mother from chemo used to tx breast cancer at age 69yrs. Father Additional Family Medical History / Comment(s): Father was healthy until he of a brain aneurysm at age 38 yrs. Medications and Allergies Home Medications Medication Instructions Recorded Confirmed Type Pravastatin Sodium [Pravachol] 40 mg PO HS 01/13/15 07/28/23 History Levothyroxine Sodium [Synthroid] 125 mcg PO HS 09/18/22 07/28/23 History Metoprolol Tartrate [Lopressor] 25 mg PO HS 09/18/22 07/28/23 History Montelukast [Singulair] 10 mg PO HS 09/18/22 07/28/23 History ALPRAZolam [Xanax] 0.25 mg PO TID PRN 07/28/23 07/28/23 History Aspirin [[place] Aspirin EC] 81 mg PO HS 07/28/23 07/28/23 History Calcium Carbonate/Vitamin D3 1 cap PO HS 07/28/23 07/28/23 History [Calcium 600 mg-D3 10 Mcg (400 Iu)] Cranberry Fruit Extract [Cranberry] 500 mg PO HS 07/28/23 07/28/23 History Melatonin 10 mg PO HS PRN 07/28/23 07/28/23 History Turmeric Root Extract [Turmeric] 500 mg PO HS 07/28/23 07/28/23 History Allergies Allergy/AdvReac Type Severity Reaction Status Date / Time gluten Allergy Unknown Verified 07/28/23 11:37 nickel Allergy Itching, Verified 07/28/23 11:37 red skin Physical Exam Vitals: Vital Signs Temp Pulse Resp BP Pulse Ox 07/28/23 14:00 77 14 96/64 95 07/28/23 10:27 97.0 F L 88 16 141/87 97 Intake and Output 07/28/23 07/28/23 07/28/23 06:59 14:59 22:59 Other: Weight 52.617 kg Results CBC & Chem 7: 07/28/23 10:55 07/28/23 10:55 Labs: Abnormal Lab Results - Last 24 Hours (Table) 07/28/23 07/28/23 Range/Units 10:55 10:55 D-Dimer 1.11 H (<0.60) mg/L FEU Chloride 108 H (98-107) mmol/L BUN 27 H (7-17) mg/dL
[2023-07-28] MEDS: NITROGLYCERIN OINT 1 INCH/GM PACKET TOPICAL SCH (20:21)
[2023-07-28] MEDS: LEVOTHYROXINE 125 MCG TAB PO SCH (20:23)
[2023-07-28] MEDS: PRAVASTATIN SODIUM 40 MG TAB PO SCH (20:23)
[2023-07-28] MEDS: ASPIRIN 81 MG PO SCH (20:23)
[2023-07-28] MEDS: MELATONIN 5 MG TABLET PO PRN (20:23)
[2023-07-28] MEDS: METOPROLOL TARTRATE 25 MG TAB PO SCH (20:24)
[2023-07-28] MEDS: MONTELUKAST 10 MG TAB PO SCH (20:24)
--- NOTE | 2023-07-29 08:38 | P.CRDCN ---
History of Present Illness Consult date: 07/29/23 Consult reason: chest pain History of present illness: This is Charlie Kapadia NP, I'm dictating on behalf of Dr. Lehman's H&P and A&P The patient was interviewed and examined. HPI: Patient is a pleasant 78-year-old female with a past medical history that includes sick sinus syndrome, pancreatitis, chronic back pain, degenerative disc disease, hypothyroidism, orthostatic hypotension who presents to the hospital with chest pain. Patient reports that she was working outside at home moving ladders when she finished she suddenly experienced pain that radiated from her back around front to her chest. She states that it lasted for approximately 3 minutes, and then afterward she had a headache and was very weak afterwards. After resting some more she states the pain returned, and this concerned her enough to present to the hospital for evaluation. In the emergency department the patient was found to have a normal EKG. Troponins have been negative x 3. This morning the patient reports she is having no pain at this time. She also states that the nitro that they put her on in the ER did not do anything for the pain as well. Patient has a pacemaker secondary to sick sinus syndrome. ROS: [No fever, chills, or rigors] [no cough, phlegm, or expectoration] [no nausea, vomiting, or diarrhea] [no hematuria, dysuria] [no musculoskelatal complaints] [no strokes or seizures] [no skin lesions] EXAMINATION: GENERAL: Well-appearing, well-nourished and in no acute distress. NECK: Supple without JVD or thyromegaly. LUNGS: Breath sounds clear to auscultation bilaterally. Respiration equal and unlabored. No wheezes, rales or rhonchi. HEART: Regular rate and rhythm without murmurs, rubs or gallops. S1 and S2 heard. EXTREMITIES: Normal range of motion, no edema. No clubbing or cyanosis. Peripheral pulses intact and strong. REVIEW OF LABS, ECG & MEDICAL DATA: LABS: White count 5.6, hemoglobin 13.2, platelets 224, D-dimer 1.11, sodium 137, potassium 4.2, BUN 27, creatinine 0.89, troponin less than 0.012 x 3 EKG: Normal sinus mechanism IMAGING: Chest x-ray dated 07/28/2023 demonstrates no acute cardiopulmonary disease, findings suggestive of mild COPD and chronic lung changes. VITALS: Temp 97.3, pulse 76 currently respirations 16, blood pressure 101/67, O2 saturation 95% on room air IMPRESSION: 1. Chest pain, musculoskeletal in origin. 2. History of sick sinus syndrome with second-degree heart block, patient has pacemaker 3. Mild COPD noted on chest x-ray PLAN: Obtain lipid panel. Have patient walk up and down the hallway briskly. If she has no further chest pain symptoms, she may be discharged from a cardiology standpoint. Follow-up with Dr. Hansen next week, recommend stress test in the next couple of weeks as an outpatient. Thank you for the consult and allowing us to participate in the care of this pa tient. Past Medical History Past Medical History: Asthma, GERD/Reflux, Hyperlipidemia, Osteoarthritis (OA), Syncope, Thyroid Disorder Additional Past Medical History / Comment(s): Other hx: syncopy, SSS -2nd degree heart block-has pacemaker, intermittent benign familial head tremors, pas hx. pancreatitis, chronic back pain, DDD, hypothyroidism, orthostatic hypotension, diverticulosis, possible celiac disease-pt eats gluten free, last known EF 55- 60% in 2012 with mild tricuspid regurg., passed out recently & was seen in , takes semaglutide for weight loss, not diabetic, see Dr. Lehman H & P History of Any Multi-Drug Resistant Organisms: None Reported Past Surgical History: Breast Surgery, Cholecystectomy, Joint Replacement, Pacemaker, Tonsillectomy, Tubal Ligation Additional Past Surgical History / Comment(s): leandro knee replacements, Other SX HX: dual chamber pacer 01/26/13, breast implants, oophorectomy Past Anesthesia/Blood Transfusion Reactions: Postoperative Nausea & Vomiting (PONV) Additional Past Anesthesia/Blood Transfusion Reaction / Comment(s): Pt has never recieved blood. Type of Cardiac Device: Permanent Pacemaker Device Placement Date:: 01/26/13 Past Psychological History: Anxiety Additional Psychological History / Comment(s): Pt is independent. She drives. She has a cane which she uses prn. Smoking Status: Former smoker Past Alcohol Use History: Rare Additional Past Alcohol Use History / Comment(s): quit smoking 20 yrs. ago, smoked on & off 40 yrs. Past Drug Use History: None Reported - Past Family History Mother Sister(s) Family Medical History: Cancer Mother Family Medical History: Cancer Additional Family Medical History / Comment(s): Mother from chemo used to tx breast cancer at age 69yrs. Father Additional Family Medical History / Comment(s): Father was healthy until he of a brain aneurysm at age 38 yrs. Medications and Allergies Home Medications Medication Instructions Recorded Confirmed Type Pravastatin Sodium [Pravachol] 40 mg PO HS 01/13/15 07/28/23 History Levothyroxine Sodium [Synthroid] 125 mcg PO HS 09/18/22 07/28/23 History Metoprolol Tartrate [Lopressor] 25 mg PO HS 09/18/22 07/28/23 History Montelukast [Singulair] 10 mg PO HS 09/18/22 07/28/23 History ALPRAZolam [Xanax] 0.25 mg PO TID PRN 07/28/23 07/28/23 History Aspirin [[place] Aspirin EC] 81 mg PO HS 07/28/23 07/28/23 History Calcium Carbonate/Vitamin D3 1 cap PO HS 07/28/23 07/28/23 History [Calcium 600 mg-D3 10 Mcg (400 Iu)] Cranberry Fruit Extract [Cranberry] 500 mg PO HS 07/28/23 07/28/23 History Melatonin 10 mg PO HS PRN 07/28/23 07/28/23 History Turmeric Root Extract [Turmeric] 500 mg PO HS 07/28/23 07/28/23 History Allergies Allergy/AdvReac Type Severity Reaction Status Date / Time gluten Allergy Unknown Verified 07/28/23 11:37 nickel Allergy Itching, Verified 07/28/23 11:37 red skin Physical Exam Vitals: Vital Signs Temp Pulse Pulse Resp BP BP Pulse Ox 07/29/23 02:00 97.3 F L 76 16 101/67 95 07/28/23 21:36 95/61 07/28/23 20:00 97.9 F 84 18 86/48 93 L 07/28/23 17:37 97.4 F L 92 16 97/61 96 07/28/23 17:00 87 22 92/60 95 07/28/23 16:45 87 17 108/83 94 L 07/28/23 16:30 93 18 94/59 95 07/28/23 16:15 91 18 98/62 94 L 07/28/23 16:00 105 H 21 90/65 95 07/28/23 15:45 93 22 96/67 93 L 07/28/23 15:30 90 21 107/79 94 L 07/28/23 15:15 89 8 L 92/66 96 07/28/23 15:00 87 26 H 93/65 94 L 07/28/23 14:45 82 20 83/66 94 L 07/28/23 14:30 81 14 92/64 95 07/28/23 14:15 83 16 96/64 93 L 07/28/23 14:00 80 20 85/60 94 L 07/28/23 13:45 78 17 86/62 95 07/28/23 13:30 81 18 89/63 94 L 07/28/23 13:15 75 13 92/68 94 L 07/28/23 13:00 76 14 96/66 92 L 07/28/23 12:45 85 18 99/66 93 L 07/28/23 12:30 85 13 99/68 91 L 07/28/23 12:15 83 16 106/77 94 L 07/28/23 12:00 108/74 07/28/23 11:45 84 17 106/83 95 07/28/23 11:30 81 12 127/78 96 07/28/23 11:00 82 10 L 116/92 07/28/23 10:45 81 15 126/79 98 07/28/23 10:30 83 8 L 141/87 97 07/28/23 10:29 24 141/87 97 07/28/23 10:27 97.0 F L 88 16 141/87 97 Intake and Output 07/28/23 07/29/23 07/29/23 22:59 06:59 14:59 Other: # Voids 2 2 Weight 52.617 kg Results 07/28/23 10:55 07/28/23 10:55 Cardiac Enzymes 07/28/23 07/28/23 07/28/23 Range/Units 10:55 10:55 14:37 AST 26 (14-36) U/L Troponin I <0.012 <0.012 (0.000-0.034) ng/mL 07/28/23 Range/Units 17:18 AST (14-36) U/L Troponin I <0.012 (0.000-0.034) ng/mL Coagulation 07/28/23 Range/Units 10:55 PT 10.9 (10.0-12.5) sec APTT 26.9 (22.0-30.0) sec CBC 07/28/23 Range/Units 10:55 WBC 5.6 (3.8-10.6) k/uL RBC 4.34 (3.80-5.40) m/uL Hgb 13.2 (11.4-16.0) gm/dL Hct 41.4 (34.0-46.0) % Plt Count 224 (150-450) k/uL Comprehensive Metabolic Panel 07/28/23 Range/Units 10:55 Sodium 137 (137-145) mmol/L Potassium 4.2 (3.5-5.1) mmol/L Chloride 108 H (98-107) mmol/L Carbon Dioxide 26 (22-30) mmol/L BUN 27 H (7-17) mg/dL Creatinine 0.89 (0.52-1.04) mg/dL Glucose 85 (74-99) mg/dL Calcium 9.0 (8.4-10.2) mg/dL AST 26 (14-36) U/L ALT 14 (4-34) U/L Alkaline Phosphatase 67 (38-126) U/L Total Protein 6.6 (6.3-8.2) g/dL Albumin 4.0 (3.5-5.0) g/dL Current Medications Generic Name Dose Route Start Last Admin Trade Name Freq PRN Reason Stop Dose Admin Alprazolam 0.25 mg 07/28/23 16:32 Alprazolam 0.25 Mg Tab PO TID PRN Anxiety Aspirin 81 mg 07/28/23 21:00 07/28/23 20:23 Aspirin 81 Mg PO 81 mg HS PHI Administration Levothyroxine Sodium 125 mcg 07/28/23 21:00 07/28/23 20:23 Levothyroxine 125 Mcg Tab PO 125 mcg HS PHI Administration Melatonin 10 mg 07/28/23 16:32 07/28/23 20:23 Melatonin 5 Mg Tablet PO 10 mg HS PRN Administration Insomnia Metoprolol Tartrate 25 mg 07/28/23 21:00 07/28/23 20:24 Metoprolol Tartrate 25 Mg Tab PO 25 mg HS PHI Administration Montelukast Sodium 10 mg 07/28/23 21:00 07/28/23 20:24 Montelukast 10 Mg Tab PO 10 mg HS PHI Administration Nitroglycerin 0.4 mg 07/28/23 13:27 Nitroglycerin Sl Tabs 0.4 Mg Tab SUBLINGUAL Q5M PRN Chest Pain Nitroglycerin 1 inch 07/28/23 18:00 07/29/23 02:38 Nitroglycerin Oint 1 Inch/Gm Packet TOPICAL Not Given Q6HR PHI Pravastatin Sodium 40 mg 07/28/23 21:00 07/28/23 20:23 Pravastatin Sodium 40 Mg Tab PO 40 mg HS PHI Administration Intake and Output 07/28/23 07/29/23 07/29/23 22:59 06:59 14:59 Other: # Voids 2 2 Weight 52.617 kg 07/28/23 10:55 07/28/23 10:55
[2023-07-29] MEDS ORDERED: ASPIRIN 325 MG TAB PO SCH (09:00)
[2023-07-29 09:21] VITALS: BP 115/75; PULSE 93; RESP 17; TEMP 97.5
[2023-07-29 10:21] LABS: Chol/HDL Ratio 2.59 Ratio; LDL Cholesterol,Calculated 89.3 mg/dL (0.0-131.0); VLDL Calculation 18.66 mg/dL (5.00-40.00)
[2023-07-29] MEDS: IBUPROFEN 400 MG TAB PO STA (11:59)
[2023-07-29 13:02] LABS: Chol/HDL Ratio 2.52 Ratio
[2023-07-29 13:03] LABS: LDL Cholesterol,Calculated 93.9 mg/dL (0.0-131.0)
--- NOTE | 2023-07-31 22:04 | P.DS ---
Providers Date of admission: 07/28/23 13:31 Attending physician: Augie Louis Consults: 07/28/23 13:27 Consult Physician Urgent Consulting Provider: [facility] Consult Reason/Comments: Chest pain Do you want consulting provider notified?: Yes Primary care physician: Physician Nonstaff Hospital Course: Final Diagnosis -Chest pain likely musculoskeletal in nature, ACS ruled out -Elevated DDimer with no pulmonary embolism. -Asthma without any acute exacerbation -Hypothyroidism -Hyperlipidemia -Anxiety disorder -Hx pacemaker due to sick sinus syndrome -Possible COPD Discharge Disposition Patient is stable for discharge home. Has been cleared by cardiology felt the chest pain is musculoskeletal in nature. Cardiology recommending outpatient stress test and follow up with her primary building guard deputy sheriff Dr. SCOTT Hansen in 1 to 2 weeks. Hospital Course Patient is a 78-year-old female came in with complaints of severe sharp nonexertional chest pain that started day before admission radiating from the back to the front. Patient does not have her gallbladder. Patient denies any other radiation of the chest pain to the neck or to the left shoulder denies any diaphoresis lightheadedness shortness of breath associate with that. Patient chest pain is nonexertional. Patient pain resolved in 3 minutes followed by couple more episodes today morning although not as severe. EKG did not show any acute ST-T wave changes the some changes consistent with right bundle branch block 2 sets of troponins are negative. Patient had mild elevated D-dimer because of his CT angio of the chest was obtained which did not show any pulmonary embolism, aortic dissection or pneumonia. Patient had been painting her deck and moving a ladder this may be musculoskeletal in nature. She was admitted with cardiology consultation. Troponin was negative x 3 the chest pain had resolved. Patient has been up ambulating with no further reports of chest pain. She will be discharged home. Please see medication reconciliation for a list of current medications. Thank you for allowing us to participate in the care of this patient. The impression and plan of care has been dictated by Elinor Herrera, Nurse Practitioner as directed. Dr. Heriberto MD I have performed a history and physical examination and medical decision making of this patient, discussed the same with the dictator, and agree with the dictators assessment and plan as written, documented as a scribe. Based on total visit time, I have performed more than 50% of this visit. Patient Condition at Discharge: Good Plan - Discharge Summary Discharge Rx Participant: Yes New Discharge Prescriptions: Continue Pravastatin Sodium [Pravachol] 40 mg PO HS Montelukast [Singulair] 10 mg PO HS Metoprolol Tartrate [Lopressor] 25 mg PO HS Levothyroxine Sodium [Synthroid] 125 mcg PO HS Melatonin 10 mg PO HS PRN PRN Reason: Insomnia Aspirin [Tensas Aspirin EC] 81 mg PO HS ALPRAZolam [Xanax] 0.25 mg PO TID PRN PRN Reason: Anxiety Calcium Carbonate/Vitamin D3 [Calcium 600 mg-D3 10 Mcg (400 Iu)] 1 cap PO HS Cranberry Fruit Extract [Cranberry] 500 mg PO HS Turmeric Root Extract [Turmeric] 500 mg PO HS No Action Pantoprazole [Protonix] 40 mg PO DAILY #14 tab Discharge Medication List Pravastatin Sodium [Pravachol] 40 mg PO HS 01/13/15 [History] Levothyroxine Sodium [Synthroid] 125 mcg PO HS 09/18/22 [History] Metoprolol Tartrate [Lopressor] 25 mg PO HS 09/18/22 [History] Montelukast [Singulair] 10 mg PO HS 09/18/22 [History] ALPRAZolam [Xanax] 0.25 mg PO TID PRN 07/28/23 [History] Aspirin [Tensas Aspirin EC] 81 mg PO HS 07/28/23 [History] Calcium Carbonate/Vitamin D3 [Calcium 600 mg-D3 10 Mcg (400 Iu)] 1 cap PO HS 07/28/23 [History] Cranberry Fruit Extract [Cranberry] 500 mg PO HS 07/28/23 [History] Melatonin 10 mg PO HS PRN 07/28/23 [History] Turmeric Root Extract [Turmeric] 500 mg PO HS 07/28/23 [History] Pantoprazole [Protonix] 40 mg PO DAILY #14 tab 07/30/23 [Rx] Follow up Appointment(s)/Referral(s): Wade Hansen MD [STAFF PHYSICIAN] - 1 Week Nonstaff,Physician [Primary Care Provider] - 1-2 days Horace Hansen MD [STAFF PHYSICIAN] - 1-2 Days Patient Instructions/Handouts: Chest Pain (DC) Activity/Diet/Wound Care/Special Instructions: Follow up with Dr. SCOTT Hansen in the office in 1 to 2 weeks regarding possible stress test. Discharge Disposition: HOME SELF-CARE
== END 2023-07-29 14:38 | disposition home or self-care (01) ==
LOC: EC 10:06 → 6NMEDSUR 13:31
PROVIDERS: ADMIT Internal Medicine; ATTEND Internal Medicine
DX: R07.89 Other chest pain (principal); J45.909 Unspecified asthma, uncomplicated; E03.9 Hypothyroidism, unspecified; E78.5 Hyperlipidemia, unspecified; F41.9 Anxiety disorder, unspecified; Z95.0 Presence of cardiac pacemaker; I49.5 Sick sinus syndrome; Z96.653 Presence of artificial knee joint, bilateral; Z82.49 Family history of ischemic heart disease and other diseases of the circulatory system; Z79.899 Other long term (current) drug therapy; Z79.82 Long term (current) use of aspirin
CPT/HCPCS: 96374; 99285; 36415; 93005; 85379; 80061 ×2; 80053; 83735; 84484; 85025; 85610; 85730; 71046; 71275; G0378 ×2; J2060; Q9967

== ENCOUNTER 2023-07-30 01:00 | Observation (INO) | payer MEDICARE, OTHER ==
[2023-07-30] MEDS: LORazepam 2 MG/ML INJ IV STA (01:45)
[2023-07-30 01:55] LABS: Basophils % (A) 1 %; Eosinophils # (A) 0.2 k/uL (0-0.7); Eosinophils % (A) 3 %; HCT 39.8 % (34.0-46.0); HGB 12.9 gm/dL (11.4-16.0); Lymphocytes # (A) 1.5 k/uL (1.0-4.8); Lymphocytes % (A) 29 %; MCHC 32.3 g/dL (31.0-37.0); MCV 95.7 fL (80.0-100.0); Mean Platelet Volume 8.4; Monocytes # (A) 0.3 k/uL (0-1.0); Monocytes % (A) 5 %; Neutrophils # (A) 3.2 k/uL (1.3-7.7); Neutrophils % (A) 60 %; Platelet Count 224 k/uL (150-450); RBC 4.16 m/uL (3.80-5.40); RDW 12.8 % (11.5-15.5); WBC 5.4 k/uL (3.8-10.6)
--- NOTE | 2023-07-30 01:56 | ED ---
Chest Pain HPI - General Chief Complaint: Chest Pain Stated Complaint: Chest Pain Time Seen by Provider: 07/30/23 01:08 Source: patient, EMS Mode of arrival: EMS Limitations: no limitations - History of Present Illness Initial Comments: 78-year-old female with past medical history significant for sick sinus syndrome with pacemaker presented to the ED with complaints of chest pain. Patient discharged from this facility yesterday due to complaints of chest pain that seemed to radiate from her back. At discharge, patient reports pain was mostly resolved and had a dull ache however tonight while she was sleeping she said that she started to experience substernal chest pain different from chest pain that she was having a few days ago. Does note associated diaphoresis and nausea. Reports pain substernal and did not radiate. Patient reported pain ongoing for about 2 minutes until EMS arrived and she was provided baby aspirin, nitro, fentanyl. Upon arrival here states pain is now a 1 out of 10. Reports that this time symptoms mostly resolved however does note some anxiety. No other complaints at this time. - Related Data Home Medications Medication Instructions Recorded Confirmed Pravastatin Sodium [Pravachol] 40 mg PO HS 01/13/15 07/28/23 Levothyroxine Sodium [Synthroid] 125 mcg PO HS 09/18/22 07/28/23 Metoprolol Tartrate [Lopressor] 25 mg PO HS 09/18/22 07/28/23 Montelukast [Singulair] 10 mg PO HS 09/18/22 07/28/23 ALPRAZolam [Xanax] 0.25 mg PO TID PRN 07/28/23 07/28/23 Aspirin [[place] Aspirin EC] 81 mg PO HS 07/28/23 07/28/23 Calcium Carbonate/Vitamin D3 1 cap PO HS 07/28/23 07/28/23 [Calcium 600 mg-D3 10 Mcg (400 Iu)] Cranberry Fruit Extract [Cranberry] 500 mg PO HS 07/28/23 07/28/23 Melatonin 10 mg PO HS PRN 07/28/23 07/28/23 Turmeric Root Extract [Turmeric] 500 mg PO HS 07/28/23 07/28/23 Allergies Allergy/AdvReac Type Severity Reaction Status Date / Time gluten Allergy Unknown Verified 07/28/23 11:37 nickel Allergy Itching, Verified 07/28/23 11:37 red skin Review of Systems ROS Statement: Those systems with pertinent positive or pertinent negative responses have been documented in the HPI. ROS Other: All systems not noted in ROS Statement are negative. Past Medical History Past Medical History: Asthma, GERD/Reflux, Hyperlipidemia, Osteoarthritis (OA), Syncope, Thyroid Disorder Additional Past Medical History / Comment(s): Other hx: syncopy, SSS -2nd degree heart block-has pacemaker, intermittent benign familial head tremors, pas hx. pancreatitis, chronic back pain, DDD, hypothyroidism, orthostatic hypotension, diverticulosis, possible celiac disease-pt eats gluten free, last known EF 55- 60% in 2013 with mild tricuspid regurg., passed out recently & was seen in , takes semaglutide for weight loss, not diabetic, see Dr. Lehman H & P History of Any Multi-Drug Resistant Organisms: None Reported Past Surgical History: Breast Surgery, Cholecystectomy, Joint Replacement, Pacemaker, Tonsillectomy, Tubal Ligation Additional Past Surgical History / Comment(s): leandro knee replacements, Other SX HX: dual chamber pacer 01/26/13, breast implants, oophorectomy Past Anesthesia/Blood Transfusion Reactions: Postoperative Nausea & Vomiting (PONV) Additional Past Anesthesia/Blood Transfusion Reaction / Comment(s): Pt has never recieved blood. Type of Cardiac Device: Permanent Pacemaker Device Placement Date:: 01/26/13 Past Psychological History: Anxiety Smoking Status: Former smoker Past Alcohol Use History: Rare Past Drug Use History: None Reported - Past Family History Mother Sister(s) Family Medical History: Cancer Mother Family Medical History: Cancer Additional Family Medical History / Comment(s): Mother from chemo used to tx breast cancer at age 69yrs. Father Additional Family Medical History / Comment(s): Father was healthy until he of a brain aneurysm at age 38 yrs. General Exam Limitations: no limitations General appearance: alert, in no apparent distress Eye exam: Present: normal appearance Neck exam: Present: normal inspection Respiratory exam: Present: normal lung sounds bilaterally Cardiovascular Exam: Present: regular rate GI/Abdominal exam: Present: soft Neurological exam: Present: alert, oriented X3 Skin exam: Present: warm, dry Course Vital Signs 07/30/23 07/30/23 07/30/23 01:07 02:53 03:19 Temperature 97.5 F L Pulse Rate 75 78 81 Respiratory 18 16 16 Rate Blood Pressure 100/75 80/60 93/62 O2 Sat by Pulse 97 93 L 92 L Oximetry 07/30/23 03:50 Temperature Pulse Rate 88 Respiratory 16 Rate Blood Pressure 97/67 O2 Sat by Pulse 95 Oximetry Chest Pain MDM - MDM Was pt. sent in by a medical professional or institution (DARA Austin, MANAGER CUST[employer], urgent care, hospital, or intermediate...) When possible be specific @ -No Did you speak to anyone other than the patient for history (EMS, parent, family, police, friend...)? What history was obtained from this source @ -No Did you review nursing and triage notes (agree or disagree)? Why? @ -I reviewed and agree with nursing and triage notes Were old charts reviewed (outside hosp., previous admission, EMS record, old EKG, old radiological studies, urgent care reports/EKG's, intermediate records)? Report findings @ -Prior to discharge reviewed. For further details please see HPI. Differential Diagnosis (chest pain, altered mental status, abdominal pain women, abdominal pain men, vaginal bleeding, weakness, fever, dyspnea, syncope, headache, dizziness, GI bleed, back pain, seizure, CVA, palpatations, mental health, musculoskeletal)? @ -Differential Chest Pain: Stable Angina, Unstable Angina, STEMI, NSTEMI Aortic Dissection, Pneumothorax, Musculoskeletal, Esophageal Spasm GERD, Cholecystitis, Pancreatitis, Zoster, this is not meant to be an all-inclusive list. EKG interpreted by me (3pts min.). @ -EKG interpreted by me showing a paced rhythm at [address] or T wave changes. NV 222, QRS 76, QT/QTc 369/400. X-rays interpreted by me (1pt min.). @ -Pending CT interpreted by me (1pt min.). @ -None done U/S interpreted by me (1pt. min.). @ -None done What testing was considered but not performed or refused? (CT, X-rays, U/S, labs)? Why? @ -None What meds were considered but not given or refused? Why? @ -None Did you discuss the management of the patient with other professionals (professionals i.e. DARA Austin, MANAGER [employer]OM, lab, RT, psych nurse, adoption social worker, follow up rep, teacher, network security officer, pillowcase cleaner)? Give summary @ -No Was smoking cessation discussed for >3mins.? @ -No Was critical care preformed (if so, how long)? @ -No Were there social determinants of health that impacted care today? How? (Homelessness, low income, unemployed, alcoholism, drug addiction, transportation, low edu. Level, literacy, decrease access to med. care, retirement, rehab)? @ -No Was there de-escalation of care discussed even if they declined (Discuss DNR or withdrawal of care, Hospice)? DNR status @ -No What co-morbidities impacted this encounter? (DM, HTN, Smoking, COPD, CAD, Cancer, CVA, ARF, Chemo, Hep., AIDS, mental health diagnosis, sleep apnea, morbid obesity)? @ -None Was patient admitted / discharged? Hospital course, mention meds given and route, prescriptions, significant lab abnormalities, going to OR and other pertinent info. @ -Admission 78-year-old female presenting to the ED with complaints of chest pain. Laboratory studies reviewed. Labs at this time largely unremarkable. EKG with paced rhythm without acute ST or T wave changes. Initial troponin undetectable. Patient will be admitted to observation with consult to cardiology with serial troponins. Plan of care discussed with patient who is in agreement. Undiagnosed new problem with uncertain prognosis? @ -No Drug Therapy requiring intensive monitoring for toxicity (Heparin, Nitro, Insulin, Cardizem)? @ -No Were any procedures done? @ -No Diagnosis/symptom? @ -Chest pain Acute, or Chronic, or Acute on Chronic? @ -Acute Uncomplicated (without systemic symptoms) or Complicated (systemic symptoms)? @ -Uncomplicated Side effects of treatment? @ -No Exacerbation, Progression, or Severe Exacerbation? @ -No Poses a threat to life or bodily function? How? (Chest pain, [place], [place], pneumonia, PE, COPD, DKA, ARF, appy, cholecystitis, CVA, Diverticulitis, Homicidal, Suicidal, threat to staff... and all critical care pts) @ -Possibly, however unlikely at this time Disposition Clinical Impression: Chest pain Disposition: ADMITTED IP TO THIS HOSP Condition: Good Referrals: Wade Hansen MD [Primary Care Provider] - 1-2 days Time of Disposition: 04:05
[2023-07-30 02:13] LABS: ALT 32 U/L (4-34); AST 76 U/L (14-36); African American GFR (CKD) 78 (>60 ml/min/1.73 sqM); Albumin 3.8 g/dL (3.5-5.0); Alkaline Phosphatase 94 U/L (38-126); Anion Gap 6 mmol/L; Blood Urea Nitrogen 35 mg/dL (7-17); Calcium 8.7 mg/dL (8.4-10.2); Carbon Dioxide 26 mmol/L (22-30); Chloride 106 mmol/L (98-107); Glucose 104 mg/dL (74-99); Magnesium 1.9 mg/dL (1.6-2.3); Non-African American GFR(CKD) 68 (>60 ml/min/1.73 sqM); Potassium 4.4 mmol/L (3.5-5.1); Sodium 138 mmol/L (137-145); Total Bilirubin 0.4 mg/dL (0.2-1.3); Total Protein 6.4 g/dL (6.3-8.2)
[2023-07-30 02:35] LABS: INR 0.9 (<1.2); Partial Thromboplastin Time 25.1 sec (22.0-30.0); Prothrombin Time 10.4 sec (10.0-12.5)
[2023-07-30] MEDS: SODIUM CHLORIDE 0.9% 1,000 ML BAG IV STA (02:58)
[2023-07-30] MEDS ORDERED: NALOXONE 0.4 MG/ML 1 ML VIAL IV PRN (04:06)
[2023-07-30] MEDS ORDERED: HYDROmorphone 0.5 MG/0.5 ML SYRINGE IVP PRN (04:06)
[2023-07-30] MEDS ORDERED: ONDANSETRON 4 MG/2 ML VIAL IVP PRN (04:06)
[2023-07-30] MEDS ORDERED: HYDROmorphone 1 MG/ML 1 ML SYRINGE IVP PRN (04:06)
[2023-07-30] MEDS ORDERED: ACETAMINOPHEN TAB 325 MG TAB PO PRN (04:06)
[2023-07-30] MEDS ORDERED: NITROGLYCERIN SL TABS 0.4 MG TAB SUBLINGUAL PRN (04:07)
[2023-07-30] MEDS: SODIUM CHLORIDE 0.9% 1,000 ML IV SCH (04:23)
--- NOTE | 2023-07-30 05:31 | XR ---
EXAMINATION TYPE: XR chest 2V DATE OF EXAM: 07/30/2023 COMPARISON: Prior chest x-ray 2 days ago HISTORY: Chest pain TECHNIQUE: Frontal and lateral views of the chest are obtained. FINDINGS: Background chronic emphysematous changes suspected on lateral view. Persistent bibasilar h orizontal opacity. No pleural effusion or pneumothorax seen bilaterally. The cardiac silhouette size is upper limits of normal with dual lead pacemaker redemonstrated. Mild central vascular congestion s uspected. The osseous structures are intact. IMPRESSION: Chronic emphysematous change with bibasilar linear scarring and/or atelectasis and suspe cted new mild central vascular congestion. Correlate for fluid overload state.
[2023-07-30 06:14] LABS: Appearance,Urine Clear (Clear); Bacteria,Urine Rare /hpf; Bilirubin,Urine Negative (Negative); Blood,Urine Negative (Negative); Color,Urine Colorless; Glucose,Urine (UA) Negative (Negative); Ketones,Urine Negative (Negative); Leukocyte Esterase,Urine Moderate (Negative); Nitrite,Urine Negative (Negative); PH, Urine 6.5 (5.0-8.0); Protein,Urine Negative (Negative); RBC,Urine <1 /hpf (0-5); Specific Gravity,Urine 1.009 (1.001-1.035); Squamous Epithelial Cell,Urine <1 /hpf (0-4); Urobilinogen,Urine <2.0 mg/dL (<2.0); WBC,Urine 9 /hpf (0-5)
[2023-07-30] MEDS ORDERED: AMINOPHYLLINE 500 MG/20 ML VIAL IV PRN (08:29)
[2023-07-30] MEDS ORDERED: CAFFEINE CITRATE 60 MG/3 ML VIAL IV PRN (08:29)
[2023-07-30] MEDS ORDERED: REGADENOSON 0.4 MG/5 ML SYRINGE IV PRN (08:29)
--- NOTE | 2023-07-30 08:52 | P.CRDCN ---
History of Present Illness History of present illness: HISTORY OF PRESENT ILLNESS: This is a 78-year-old female with a past medical history significant for sick sinus syndrome with syncope, permanent pacemaker implantation, hypertension, hyperlipidemia, and former nicotine dependence. Patient follows in the office with Dr. Hansen. We have been asked to see the patient in consultation for chest pain. Patient examined at the bedside in the emergency room. Patient was seen and evaluated over the weekend for chest pain. An acute coronary event was ruled out. The patient was encouraged to ambulate in the hallway which she did without any further symptoms and she was discharged home in stable condition. She states that yesterday around midnight she began to have chest discomfort again in the middle of her chest. She does state that she felt some pain in her shoulder but otherwise did not have any radiation of the pain. She states the pain was so bad that she could hardly talk. She called EMS and was brought to the hospital for further evaluation. At the time of examination, the patient denies any chest pain or pressure. She denies any shortness of breath. Vital signs are stable. DIAGNOSTICS: - EKG reveals atrial paced rhythm without any signs of acute ischemia. - Chest xray chronic emphysematous change with bibasilar linear scarring and/or atelectasis and suspected new mild central vascular congestion.. - Laboratory data: WBC 5.4. Hemoglobin 12.9. Platelet count 224. Sodium 138. Potassium 4.4. BUN 35. Creatinine 0.83. Magnesium 1.9. Troponin negative x 2 - Current home cardiac medication list is not updated at the time of this dictation - Most recent echocardiogram obtained in October 2021 reveals ejection fraction 55% with mild mitral regurgitation. -Patient underwent Lexiscan stress test in June 2019 with no evidence of ischemia REVIEW OF SYSTEMS: At the time of my exam: CONSTITUTIONAL: Denies fever or chills. HEENT: Denies blurred vision, vision changes, or eye pain. Denies hemoptysis CARDIOVASCULAR: Denies chest pain. Denies orthopnea. Denies PND. Denies palpitations RESPIRATORY: Denies shortness of breath. GASTROINTESTINAL: Denies abdominal pain. Denies nausea or vomiting. HEMATOLOGIC: Denies bleeding disorders. GENITOURINARY: Denies any blood in urine. SKIN: Denies pruitis. Denies rash. PHYSICAL EXAM: VITAL SIGNS: Reviewed. GENERAL: Well-developed in no acute distress. HEENT: Head is normocephalic. Pupils are equal, round. Sclerae anicteric. Mucous membranes of the mouth are moist. Neck supple. No JVD or thyromegaly LUNGS: Respirations even and unlabored. Lungs essentially clear to auscultation bilaterally. HEART: Regular rate and rhythm. S1 and S2 heard. ABDOMEN: Soft. Nondistended. Nontender. EXTREMITIES: Normal range of motion. No clubbing or cyanosis. Peripheral pulses intact. No lower extremity edema NEUROLOGIC: Awake and alert. Oriented x 3. ASSESSMENT: Chest pain History of sick sinus syndrome with syncope History of permanent pacemaker implantation Hypertension Hyperlipidemia Former nicotine dependence PLAN: An acute coronary event has been ruled out Obtain 2D echo to assess cardiac structure and function Resume home cardiac medications when medication list has been verified Patient to undergo Lexiscan stress test today. If negative she may be discharged home from a cardiac standpoint. If Lexiscan stress test is abnormal she will be scheduled for cardiac catheterization tomorrow with Dr. Hansen Further recommendations pending patient course Nurse practitioner note has been reviewed by physician. Signing provider agrees with the documented findings, assessment, and plan of care documented by ASSISTANCE COORDINATOR as a scribe. Past Medical History Past Medical History: Asthma, GERD/Reflux, Hyperlipidemia, Osteoarthritis (OA), Syncope, Thyroid Disorder Additional Past Medical History / Comment(s): Other hx: syncopy, SSS -2nd degree heart block-has pacemaker, intermittent benign familial head tremors, pas hx. pancreatitis, chronic back pain, DDD, hypothyroidism, orthostatic hypotension, diverticulosis, possible celiac disease-pt eats gluten free, last known EF 55- 60% in 2013 with mild tricuspid regurg., passed out recently & was seen in , takes semaglutide for weight loss, not diabetic, see Dr. Lehman H & P History of Any Multi-Drug Resistant Organisms: None Reported Past Surgical History: Breast Surgery, Cholecystectomy, Joint Replacement, Pacemaker, Tonsillectomy, Tubal Ligation Additional Past Surgical History / Comment(s): leandro knee replacements, Other SX HX: dual chamber pacer 01/26/13, breast implants, oophorectomy Past Anesthesia/Blood Transfusion Reactions: Postoperative Nausea & Vomiting (PONV) Additional Past Anesthesia/Blood Transfusion Reaction / Comment(s): Pt has never recieved blood. Type of Cardiac Device: Permanent Pacemaker Device Placement Date:: 01/26/13 Past Psychological History: Anxiety Smoking Status: Former smoker Past Alcohol Use History: Rare Past Drug Use History: None Reported - Past Family History Mother Sister(s) Family Medical History: Cancer Mother Family Medical History: Cancer Additional Family Medical History / Comment(s): Mother from chemo used to tx breast cancer at age 69yrs. Father Additional Family Medical History / Comment(s): Father was healthy until he of a brain aneurysm at age 38 yrs. Medications and Allergies Home Medications Medication Instructions Recorded Confirmed Type Pravastatin Sodium [Pravachol] 40 mg PO HS 01/13/15 07/28/23 History Levothyroxine Sodium [Synthroid] 125 mcg PO HS 09/18/22 07/28/23 History Metoprolol Tartrate [Lopressor] 25 mg PO HS 09/18/22 07/28/23 History Montelukast [Singulair] 10 mg PO HS 09/18/22 07/28/23 History ALPRAZolam [Xanax] 0.25 mg PO TID PRN 07/28/23 07/28/23 History Aspirin [[place] Aspirin EC] 81 mg PO HS 07/28/23 07/28/23 History Calcium Carbonate/Vitamin D3 1 cap PO HS 07/28/23 07/28/23 History [Calcium 600 mg-D3 10 Mcg (400 Iu)] Cranberry Fruit Extract [Cranberry] 500 mg PO HS 07/28/23 07/28/23 History Melatonin 10 mg PO HS PRN 07/28/23 07/28/23 History Turmeric Root Extract [Turmeric] 500 mg PO HS 07/28/23 07/28/23 History Allergies Allergy/AdvReac Type Severity Reaction Status Date / Time gluten Allergy Unknown Verified 07/28/23 11:37 nickel Allergy Itching, Verified 07/28/23 11:37 red skin Physical Exam Vitals: Vital Signs Temp Pulse Resp BP Pulse Ox 07/30/23 06:59 99 07/30/23 06:00 88 16 104/75 93 L 07/30/23 03:50 88 16 97/67 95 07/30/23 03:19 81 16 93/62 92 L 07/30/23 02:53 78 16 80/60 93 L 07/30/23 01:07 97.5 F L 75 18 100/75 97 Intake and Output 07/29/23 07/30/23 07/30/23 22:59 06:59 14:59 Other: Weight 52.617 kg Results 07/30/23 01:28 07/30/23 01:28 Cardiac Enzymes 07/30/23 07/30/23 07/30/23 Range/Units 01:28 01:28 05:48 AST 76 H (14-36) U/L Troponin I <0.012 <0.012 (0.000-0.034) ng/mL Coagulation 07/30/23 Range/Units 01:28 PT 10.4 (10.0-12.5) sec APTT 25.1 (22.0-30.0) sec CBC 07/30/23 Range/Units 01:28 WBC 5.4 (3.8-10.6) k/uL RBC 4.16 (3.80-5.40) m/uL Hgb 12.9 (11.4-16.0) gm/dL Hct 39.8 (34.0-46.0) % Plt Count 224 (150-450) k/uL Comprehensive Metabolic Panel 07/30/23 Range/Units 01:28 Sodium 138 (137-145) mmol/L Potassium 4.4 (3.5-5.1) mmol/L Chloride 106 (98-107) mmol/L Carbon Dioxide 26 (22-30) mmol/L BUN 35 H (7-17) mg/dL Creatinine 0.83 (0.52-1.04) mg/dL Glucose 104 H (74-99) mg/dL Calcium 8.7 (8.4-10.2) mg/dL AST 76 H (14-36) U/L ALT 32 (4-34) U/L Alkaline Phosphatase 94 (38-126) U/L Total Protein 6.4 (6.3-8.2) g/dL Albumin 3.8 (3.5-5.0) g/dL Current Medications Generic Name Dose Route Start Last Admin Trade Name Freq PRN Reason Stop Dose Admin Acetaminophen 650 mg 07/30/23 04:06 Acetaminophen Tab 325 Mg Tab PO Q6HR PRN Mild Pain or Fever > 100.5 Hydromorphone HCl 0.5 mg 07/30/23 04:06 Hydromorphone 0.5 Mg/0.5 Ml Syringe IVP Q3HR PRN Moderate Pain (Scale 4 to 6) Hydromorphone HCl 1 mg 07/30/23 04:06 Hydromorphone 1 Mg/Ml 1 Ml Syringe IVP Q3HR PRN Severe Pain (Scale 7 to 10) Sodium Chloride 1,000 mls @ 20 mls/hr 07/30/23 04:15 07/30/23 04:23 Saline 0.9% IV 20 mls/hr .Q24H PHI Administration Naloxone HCl 0.2 mg 07/30/23 04:06 Naloxone 0.4 Mg/Ml 1 Ml Vial IV Q2M PRN Opioid Reversal Nitroglycerin 0.4 mg 07/30/23 04:07 Nitroglycerin Sl Tabs 0.4 Mg Tab SUBLINGUAL Q5M PRN Chest Pain Ondansetron HCl 4 mg 07/30/23 04:06 Ondansetron 4 Mg/2 Ml Vial IVP Q8HR PRN Nausea And Vomiting Intake and Output 07/29/23 07/30/23 07/30/23 22:59 06:59 14:59 Other: Weight 52.617 kg 07/30/23 01:28 07/30/23 01:28
[2023-07-30] MEDS: ASPIRIN 81 MG PO SCH (10:06)
--- NOTE | 2023-07-30 13:03 | P.HPIM ---
History of Present Illness Patient is a 78-year-old female came in with complaints of chest pain in the middle of the chest radiating to her left shoulder. Pain is not associate with shortness of breath lightheadedness. Patient's pain is nonexertional not asso ciated with food. Denies any diaphoresis. Patient had a history of sick sinus syndrome for which patient is a pacemaker EKG showed paced rhythm chest x-ray mild central 7 central venous congestion although clinically not in heart failure patient had an echocardiogram in October 2021 showed normal ejection fraction in 2019 her Lexiscan was negative for any inducible ischemia REVIEW OF SYSTEMS: CONSTITUTIONAL: No fever, no malaise, no fatigue. HEENT: No recent visual problems or hearing problems. Denied any sore throat. CARDIOVASCULAR: No orthopnea, PND, no palpitations, no syncope. PULMONARY: No shortness of breath, no cough, no hemoptysis. GASTROINTESTINAL: No diarrhea, no nausea, no vomiting, no abdominal pain. NEUROLOGICAL: No headaches, no weakness, no numbness. HEMATOLOGICAL: Denies any bleeding or petechiae. GENITOURINARY: Denies any burning micturition, frequency, or urgency. MUSCULOSKELETAL/RHEUMATOLOGICAL: Denies any joint pain, swelling, or any muscle pain. ENDOCRINE: Denies any polyuria or polydipsia. The rest of the 14-point review of systems is negative. PHYSICAL EXAMINATION: GENERAL: The patient is alert and oriented x3, not in any acute distress. Well developed, well nourished. HEENT: Pupils are round and equally reacting to light. EOMI. No scleral icterus. No conjunctival pallor. Normocephalic, atraumatic. No pharyngeal erythema. No thyromegaly. CARDIOVASCULAR: S1 and S2 present. No murmurs, rubs, or gallops. PULMONARY: Chest is clear to auscultation, no wheezing or crackles. ABDOMEN: Soft, nontender, nondistended, normoactive bowel sounds. No palpable organomegaly. MUSCULOSKELETAL: No joint swelling or deformity. EXTREMITIES: No cyanosis, clubbing, or pedal edema. NEUROLOGICAL: Gross neurological examination did not reveal any focal deficits. SKIN: No rashes. Assessment and plan -Chest pain rule out acute concern syndromes patient will undergo stress test if that is negative patient will be discharged today -History of sick sinus syndrome with pacemaker -Hypertension -Hyperlipidemia -Hypothyroidism For above-mentioned chronic medical problems patient will be started on appropriate home medications. If stress test is negative patient will be discharged today Past Medical History Past Medical History: Asthma, GERD/Reflux, Hyperlipidemia, Osteoarthritis (OA), Syncope, Thyroid Disorder Additional Past Medical History / Comment(s): Other hx: syncopy, SSS -2nd degree heart block-has pacemaker, intermittent benign familial head tremors, pas hx. pancreatitis, chronic back pain, DDD, hypothyroidism, orthostatic hypotension, diverticulosis, possible celiac disease-pt eats gluten free, last known EF 55- 60% in 2012 with mild tricuspid regurg., passed out recently & was seen in , takes semaglutide for weight loss, not diabetic, see Dr. Lehman H & P History of Any Multi-Drug Resistant Organisms: None Reported Past Surgical History: Breast Surgery, Cholecystectomy, Joint Replacement, Pacemaker, Tonsillectomy, Tubal Ligation Additional Past Surgical History / Comment(s): leandro knee replacements, Other SX HX: dual chamber pacer 01/26/13, breast implants, oophorectomy Past Anesthesia/Blood Transfusion Reactions: Postoperative Nausea & Vomiting (PONV) Additional Past Anesthesia/Blood Transfusion Reaction / Comment(s): Pt has never recieved blood. Type of Cardiac Device: Permanent Pacemaker Device Placement Date:: 01/26/13 Past Psychological History: Anxiety Smoking Status: Former smoker Past Alcohol Use History: Rare Past Drug Use History: None Reported - Past Family History Mother Sister(s) Family Medical History: Cancer Mother Family Medical History: Cancer Additional Family Medical History / Comment(s): Mother from chemo used to tx breast cancer at age 69yrs. Father Additional Family Medical History / Comment(s): Father was healthy until he of a brain aneurysm at age 38 yrs. Medications and Allergies Home Medications Medication Instructions Recorded Confirmed Type Pravastatin Sodium [Pravachol] 40 mg PO HS 01/13/15 07/30/23 History Levothyroxine Sodium [Synthroid] 125 mcg PO HS 09/18/22 07/30/23 History Metoprolol Tartrate [Lopressor] 25 mg PO HS 09/18/22 07/30/23 History Montelukast [Singulair] 10 mg PO HS 09/18/22 07/30/23 History ALPRAZolam [Xanax] 0.25 mg PO TID PRN 07/28/23 07/30/23 History Aspirin [[place] Aspirin EC] 81 mg PO HS 07/28/23 07/30/23 History Calcium Carbonate/Vitamin D3 1 cap PO HS 07/28/23 07/30/23 History [Calcium 600 mg-D3 10 Mcg (400 Iu)] Cranberry Fruit Extract [Cranberry] 500 mg PO HS 07/28/23 07/30/23 History Melatonin 10 mg PO HS PRN 07/28/23 07/30/23 History Turmeric Root Extract [Turmeric] 500 mg PO HS 07/28/23 07/30/23 History Allergies Allergy/AdvReac Type Severity Reaction Status Date / Time gluten Allergy Unknown Verified 07/30/23 09:44 nickel Allergy Itching, Verified 07/30/23 09:44 red skin Physical Exam Vitals: Vital Signs Temp Pulse Resp BP Pulse Ox 07/30/23 10:10 85 18 126/77 99 07/30/23 08:57 99 07/30/23 08:45 97.9 F 80 18 120/74 99 07/30/23 06:59 99 07/30/23 06:00 88 16 104/75 93 L 07/30/23 03:50 88 16 97/67 95 07/30/23 03:19 81 16 93/62 92 L 07/30/23 02:53 78 16 80/60 93 L 07/30/23 01:07 97.5 F L 75 18 100/75 97 Intake and Output 07/29/23 07/30/23 07/30/23 22:59 06:59 14:59 Other: Weight 52.617 kg Results CBC & Chem 7: 07/30/23 01:28 07/30/23 01:28 Labs: Abnormal Lab Results - Last 24 Hours (Table) 07/30/23 07/30/23 Range/Units 01:28 06:02 BUN 35 H (7-17) mg/dL Glucose 104 H (74-99) mg/dL AST 76 H (14-36) U/L Ur Leukocyte Esterase Moderate H (Negative) Urine WBC 9 H (0-5) /hpf Urine Bacteria Rare H (None) /hpf
--- NOTE | 2023-07-30 13:08 | P.DS ---
Providers Date of admission: 07/30/23 03:51 Attending physician: Augie Louis Consults: 07/30/23 04:06 Consult Physician Urgent Consulting Provider: [facility] Consult Reason/Comments: Chest pain Do you want consulting provider notified?: Yes Primary care physician: [facility] Course: Patient is a 78-year-old female came in with complaints of chest pain in the middle of the chest radiating to her left shoulder. Pain is not associate with shortness of breath lightheadedness. Patient's pain is nonexertional not associated with food. Denies any diaphoresis. Patient had a history of sick sinus syndrome for which patient is a pacemaker EKG showed paced rhythm chest x- ray mild central 7 central venous congestion although clinically not in heart failure patient had an echocardiogram in October 2021 showed normal ejection fraction in 2019 her Lexiscan was negative for any inducible ischemia PHYSICAL EXAMINATION: GENERAL: The patient is alert and oriented x3, not in any acute distress. Well developed, well nourished. HEENT: Pupils are round and equally reacting to light. EOMI. No scleral icterus. No conjunctival pallor. Normocephalic, atraumatic. No pharyngeal erythema. No thyromegaly. CARDIOVASCULAR: S1 and S2 present. No murmurs, rubs, or gallops. PULMONARY: Chest is clear to auscultation, no wheezing or crackles. ABDOMEN: Soft, nontender, nondistended, normoactive bowel sounds. No palpable organomegaly. MUSCULOSKELETAL: No joint swelling or deformity. EXTREMITIES: No cyanosis, clubbing, or pedal edema. NEUROLOGICAL: Gross neurological examination did not reveal any focal deficits. SKIN: No rashes. Assessment and plan -Chest pain rule out acute concern syndromes patient will undergo stress test if that is negative patient will be discharged today -History of sick sinus syndrome with pacemaker -Hypertension -Hyperlipidemia -Hypothyroidism If stress test is negative patient will be discharged today Patient Condition at Discharge: Good Plan - Discharge Summary New Discharge Prescriptions: Continue Pravastatin Sodium [Pravachol] 40 mg PO HS Montelukast [Singulair] 10 mg PO HS Metoprolol Tartrate [Lopressor] 25 mg PO HS Levothyroxine Sodium [Synthroid] 125 mcg PO HS Melatonin 10 mg PO HS PRN PRN Reason: Insomnia Aspirin [[place] Aspirin EC] 81 mg PO HS ALPRAZolam [Xanax] 0.25 mg PO TID PRN PRN Reason: Anxiety Calcium Carbonate/Vitamin D3 [Calcium 600 mg-D3 10 Mcg (400 Iu)] 1 cap PO HS Cranberry Fruit Extract [Cranberry] 500 mg PO HS Turmeric Root Extract [Turmeric] 500 mg PO HS Discharge Medication List Pravastatin Sodium [Pravachol] 40 mg PO HS 01/13/15 [History] Levothyroxine Sodium [Synthroid] 125 mcg PO HS 09/18/22 [History] Metoprolol Tartrate [Lopressor] 25 mg PO HS 09/18/22 [History] Montelukast [Singulair] 10 mg PO HS 09/18/22 [History] ALPRAZolam [Xanax] 0.25 mg PO TID PRN 07/28/23 [History] Aspirin [[place] Aspirin EC] 81 mg PO HS 07/28/23 [History] Calcium Carbonate/Vitamin D3 [Calcium 600 mg-D3 10 Mcg (400 Iu)] 1 cap PO HS 07/28/23 [History] Cranberry Fruit Extract [Cranberry] 500 mg PO HS 07/28/23 [History] Melatonin 10 mg PO HS PRN 07/28/23 [History] Turmeric Root Extract [Turmeric] 500 mg PO HS 07/28/23 [History] Follow up Appointment(s)/Referral(s): Wade Hansen MD [Primary Care Provider] - 3 Days Discharge Disposition: HOME SELF-CARE
[2023-07-30 13:29] VITALS: RESP 18; TEMP 97.9
--- NOTE | 2023-07-30 13:54 | NM ---
EXAMINATION TYPE: NM stress Lexiscan cardiolite DATE OF EXAM: 07/30/2023 COMPARISON: NONE CLINICAL INDICATION: Female, 78 years old with history of chest pain; TECHNIQUE: After the intravenous administration of 10.12 mCi Tc 99m Sestamibi - Cardiolite resting S PECT images acquired 55 minutes post injection. The patient received 0.4mg Lexiscan, 25.5 mCi Tc 99m Sestamibi - Stress images obtained [address] injection FINDINGS: Review of stress and rest SPECT images demonstrates no distinct perfusion abnormality. Gated analysi s shows normal wall motion with an estimated left ventricular ejection fraction of 69 %. There is artifactual interfering subdiaphragmatic radiopharmaceutical which is likely creating a fals e artifact involving the anterior wall and septum. IMPRESSION: No scintigraphic evidence for reversible ischemia.
[2023-07-30 14:51] VITALS: BP 129/79; PULSE 84
--- NOTE | 2023-07-30 17:53 | CA ---
Lexiscan Nuclear Stress Test Report Name: Mel Lopez Exam Date: 07/30/2023 11:33 Exam Location: [place] Stress Ht (in): 61 Wt (lb): 116 BSA: 1.50 Ordering Phys: Sasha Farley Referring Phys: BALJINDER Technologist: Gonzalo Tipton Age: 78 Gender: F : 1945 Procedure CPT: Indications: Reflex order-Stress test ICD-10 Codes: Patient History: CHEST PAIN, HYPERCHOLESTEROLEMIA, PRIOR SMOKER, ASTHMA Medications: Meds past 24 hrs: Pretest Chest Pain: STRESS TEST Lexiscan Protocol Exercise Duration (min:sec): 01:[address] Depressions (mm): Angina Score: [place] Score: Resting HR (bpm): 77 Peak HR (bpm): 103 Resting BP (mmHg): 124 / 75 Peak BP (mmHg): 133 / 78 MPHR: 141 Target HR: 120 % MPHR: 73 METS: 1.0 Total Dose: Peak Dose: Atropine: Double Product: 43592 BP Response: Stress Termination: INFUSION COMPLETE Stress Symptoms: CHEST PRESSURE,DIZZINESS Stress Summary: ECG ANALYSIS Resting ECG: Normal sinus rhythm normal lites normal intervals Stress ECG: Patient was given intravenous Lexiscan as a protocol did not have chest pain or diagnostic ST segment depression CONCLUSIONS Negative stress test by EKG criteria Cardial lead portion of the stress test will be reported separately Dr. Bruno Dudley MD (Electronically Signed) Final Date: 30 July 2023 17:52
[2023-07-30] MEDS ORDERED: ATORVASTATIN 80 MG TAB PO SCH (21:00)
== END 2023-07-30 20:06 | disposition home or self-care (01) ==
LOC: EC 01:00 → 6NMEDSUR 03:51
PROVIDERS: ADMIT Internal Medicine; ATTEND Internal Medicine
DX: R07.89 Other chest pain (principal); I49.5 Sick sinus syndrome; I10 Essential (primary) hypertension; E78.5 Hyperlipidemia, unspecified; E03.9 Hypothyroidism, unspecified; Z95.0 Presence of cardiac pacemaker
CPT/HCPCS: 96361; 96374; 99285; 36415; 93005; 93017; 80053; 83735; 84484; 85025; 85610; 85730; 81001; 71046; 78452; G0378; A9500; J2060; J2785

== ENCOUNTER → 2023-11-05 | Outpatient (CLI) | payer MEDICARE, OTHER ==
[2023-11-05 18:24] LABS: Basophils # (A) 0.05 X 10*3/uL (0.00-0.10); Basophils % (A) 0.9 %; Eosinophils # (A) 0.16 X 10*3/uL (0.04-0.35); Eosinophils % (A) 2.9 %; HCT 41.5 % (37.2-46.3); HGB 13.3 g/dL (12.0-15.0); Lymphocytes # (A) 1.94 X 10*3/uL (0.90-5.00); Lymphocytes % (A) 34.6 %; MCH 30.6 pg (27.0-32.0); MCV 95.6 FL (80.0-97.0); Monocytes # (A) 0.47 X 10*3/uL (0.20-1.00); Monocytes % (A) 8.4 %; NRBC Per 100 WBC 0 X 10*3/uL (0.00-0.01); Neutrophils # (A) 2.97 X 10*3/uL (1.80-7.70); Platelet Count 233 X 10*3/uL (140-440); RBC 4.34 X 10*6/uL (4.10-5.20); RDW 13.2 % (11.5-14.5)
[2023-11-05 20:11] LABS: Blood Urea Nitrogen 21.4 mg/dL (9.0-27.0); Carbon Dioxide 26.8 mmol/L (21.6-31.8); Chloride 104 mmol/L (96-109); Potassium 4.5 mmol/L (3.5-5.5); Sodium 141 mmol/L (135-145)
== END | disposition home or self-care (01) ==
LOC: LABWHC1 12:24
PROVIDERS: ATTEND Internal Medicine Interventional Cardiology
DX: Z01.818 Encounter for other preprocedural examination
CPT/HCPCS: 36415; 80051; 82565; 84520; 85025